=== PATIENT | female | born 1965 | race Caucasian/White ===

== ENCOUNTER 2018-07-08 20:31 | Emergency (ER) | payer SELFPAY | END 2018-07-08 21:35 | disposition left against medical advice (07) | LOC: ER 20:31 | DX: Z53.21 Procedure and treatment not carried out due to patient leaving prior to being seen by health care provider (principal) ==

== ENCOUNTER → 2019-04-16 | Outpatient (CLI) | payer OTHER, MEDICAID ==
--- NOTE | 2019-04-16 08:54 | WOMENS IMAGING REPORT ---
EXAM DESCRIPTION: BILAT DIAGNOSTIC MAMMO W/CAD; U/S BREAST UNILAT LIMITED COMPLETED DATE/TIME: 04/16/2019 8:12 am; 04/16/2019 8:41 am REASON FOR STUDY: N64.4 MASTODYNIA; LT BREAST US PAIN N64.4 N64.4 MASTODYNIA COMPARISON: 2014, 2011 EXAM PARAMETERS: Standard craniocaudal and mediolateral oblique views of each breast recorded using digital acquisition. Additional nipple in profile CC mammograms bilaterally. Left breast 90 mediolateral view and exagge rated craniocaudad view. Ultrasound was also performed left breast in the area of pain, upper outer quadrant Read with the assistance of CAD: .[facility] - [employer] Version 9.2 LIMITATIONS: None. FINDINGS: RIGHT BREAST MASSES: No suspicious masses. CALCIFICATIONS: No new or suspicious calcifications. ARCHITECTURAL DISTORTION: None. DEVELOPING DENSITY: None. ASYMMETRY: None noted. OTHER: No other significant findings. LEFT BREAST MASSES: No suspicious masses. CALCIFICATIONS: No new or suspicious calcifications. ARCHITECTURAL DISTORTION: None. DEVELOPING DENSITY: None. ASYMMETRY: None noted. OTHER: No other significant finding. Left breast ultrasound: Ultrasound of the left breast demonstrates no discrete cystic or solid lesions. No worrisome acousti c absorption. No focal findings to explain history of breast pain IMPRESSION: No mammographic evidence for malignancy right breast. No mammographic or sonographic evidence for malignancy left breast ASSESSMENT:BIRADS 1: NEGATIVE BREAST DENSITY: a. The breasts are almost entirely fatty. BIRAD: 1 Negative. RECOMMENDATION: RECOMMENDED FOLLOW UP: Please continue yearly bilateral screening mammography/ tomos ynthesis in March 2020 SPECIFIC INTERVENTION/IMAGING/CONSULTATION RECOMMENDED:No additional intervention/ imaging/consultati on needed at this time. COMMUNICATION:Patient notified by letter COMMENT: The patient has been notified of the results by letter per MQSA requirements. Additional no tification policies are in place for contacting patient with suspicious or incomplete findings. Quality ID #225: The [employer] recommends an annual screening mammogram for women aged 40 years or over. This facility utilizes a reminder system to ensure that all patients receive reminder letters, and/or direct phone calls for appointments. This includes reminders for routine scr eening mammograms, diagnostic mammograms, or other Breast Imaging Interventions when appropriate. Th is patient will be placed in the appropriate reminder system. TECHNICAL DOCUMENTATION: FINDING NUMBER: (1) ASSESSMENT: (1) JOB ID: [id number] [employer]- All Rights Reserved Reading location - IP/workstation name: [email or web address]
--- NOTE | 2019-04-16 08:54 | WOMENS IMAGING REPORT ---
EXAM DESCRIPTION: BILAT DIAGNOSTIC MAMMO W/CAD; U/S BREAST UNILAT LIMITED COMPLETED DATE/TIME: 04/16/2019 8:12 am; 04/16/2019 8:41 am REASON FOR STUDY: N64.4 MASTODYNIA; LT BREAST US PAIN N64.4 N64.4 MASTODYNIA COMPARISON: 2014, 2011 EXAM PARAMETERS: Standard craniocaudal and mediolateral oblique views of each breast recorded using digital acquisition. Additional nipple in profile CC mammograms bilaterally. Left breast 90 mediolateral view and exagge rated craniocaudad view. Ultrasound was also performed left breast in the area of pain, upper outer quadrant Read with the assistance of CAD: .[facility] - [employer] Version 9.2 LIMITATIONS: None. FINDINGS: RIGHT BREAST MASSES: No suspicious masses. CALCIFICATIONS: No new or suspicious calcifications. ARCHITECTURAL DISTORTION: None. DEVELOPING DENSITY: None. ASYMMETRY: None noted. OTHER: No other significant findings. LEFT BREAST MASSES: No suspicious masses. CALCIFICATIONS: No new or suspicious calcifications. ARCHITECTURAL DISTORTION: None. DEVELOPING DENSITY: None. ASYMMETRY: None noted. OTHER: No other significant finding. Left breast ultrasound: Ultrasound of the left breast demonstrates no discrete cystic or solid lesions. No worrisome acousti c absorption. No focal findings to explain history of breast pain IMPRESSION: No mammographic evidence for malignancy right breast. No mammographic or sonographic evidence for malignancy left breast ASSESSMENT:BIRADS 1: NEGATIVE BREAST DENSITY: a. The breasts are almost entirely fatty. BIRAD: 1 Negative. RECOMMENDATION: RECOMMENDED FOLLOW UP: Please continue yearly bilateral screening mammography/ tomos ynthesis in March 2020 SPECIFIC INTERVENTION/IMAGING/CONSULTATION RECOMMENDED:No additional intervention/ imaging/consultati on needed at this time. COMMUNICATION:Patient notified by letter COMMENT: The patient has been notified of the results by letter per MQSA requirements. Additional no tification policies are in place for contacting patient with suspicious or incomplete findings. Quality ID #225: The [employer] recommends an annual screening mammogram for women aged 40 years or over. This facility utilizes a reminder system to ensure that all patients receive reminder letters, and/or direct phone calls for appointments. This includes reminders for routine scr eening mammograms, diagnostic mammograms, or other Breast Imaging Interventions when appropriate. Th is patient will be placed in the appropriate reminder system. TECHNICAL DOCUMENTATION: FINDING NUMBER: (1) ASSESSMENT: (1) JOB ID: [id number] [employer]- All Rights Reserved Reading location - IP/workstation name: [email or web address]
== END ==
LOC: WI 07:53
PROVIDERS: ATTEND Physician Assistant Medical
DX: N64.4 Mastodynia (principal)
CPT/HCPCS: 76642; 77066

== ENCOUNTER 2019-05-18 17:34 | Emergency (ER) | payer OTHER, MEDICAID ==
[2019-05-18] MEDS ORDERED: KETOROLAC TROMETHAMINE 60 MG/2 ML SDV IM ONE (17:49)
[2019-05-18] MEDS ORDERED: METOCLOPRAMIDE HCL 10 MG TABLET PO ONE (17:49)
[2019-05-18] MEDS ORDERED: DIPHENHYDRAMINE HCL 25 MG CAPSULE PO ONE (17:49)
--- NOTE | 2019-05-18 17:51 | ER Document Report ---
ED Medical Screen (RME) - General Chief Complaint: Headache Stated Complaint: HEADACHE Time Seen by Provider: 05/18/19 17:43 Primary Care Provider: ARNOL ABEBE PA-C [Primary Care Provider] - Follow up as needed Mode of Arrival: Ambulatory Information source: Patient Notes: Patient presents to the emergency department with complaints of severe headache to the back of her head. Reports she woke up this morning with a headache. She also reports blurred vision at that time. Denies fever vomiting diarrhea. Reports she just does not feel right. Patient is a diabetic reports her sugars have been in the 200s. Patient reports she has a history of headaches but usually the whole head hurts not just the back of her head. Patient also complains of left shoulder pain that is making her fingers numb. Reports history of rotator took cuff tear and is waiting to be scheduled for surgery. She took 1 of her Percocets that she was supposed to take for shoulder and it did not help her head at all. I have greeted and performed a rapid initial assessment of this patient. A comprehensive ED assessment and evaluation of the patient, analysis of test results and completion of the medical decision making process will be conducted by additional ED providers. Dictation of this chart was performed using voice recognition software; therefore, there may be some unintended grammatical errors. TRAVEL OUTSIDE OF THE [place] IN LAST 30 DAYS: No - Related Data Allergies/Adverse Reactions: levofloxacin [From Levaquin] Adverse Reaction (Intermediate, Verified 05/18/19 17:39) nausea and vomiting simvastatin [From Zocor] Adverse Reaction (Intermediate, Verified 05/18/19 17:39) rash Past Medical History - Past Medical History Cardiac Medical History: Reports: Hx Hypercholesterolemia, Hx Hypertension, Hx Heart Murmur Denies: Hx Coronary Artery Disease, Hx Heart Attack Pulmonary Medical History: Reports: Hx Asthma, Hx Bronchitis, Hx Pneumonia Denies: Hx COPD Neurological Medical History: Reports: Hx Migraine. Denies: Hx Cerebrovascular Accident, Hx Seizures Endocrine Medical History: Reports: Hx Diabetes Mellitus Type 2 Renal/ Medical History: Reports: Hx Kidney Stones. Denies: Hx Peritoneal Dialysis GI Medical History: Reports: Hx Gastroesophageal Reflux Disease, Hx Ulcer - gastric, Hx Colonoscopy, Hx Endoscopy Musculoskeltal Medical History: Reports Hx Arthritis, Reports Hx Musculoskeletal Trauma Psychiatric Medical History: Reports: Hx Depression Traumatic Medical History: Reports: Hx Fractures - wrist, both ankles Past Surgical History: Reports: Hx Cholecystectomy - lap marilyn, Hx Hysterectomy, Hx Orthopedic Surgery - L knee x2. Denies: Hx Pacemaker - Immunizations Immunizations up to date: Yes Hx Diphtheria, Pertussis, Tetanus Vaccination: Yes - 2012 Physical Exam - Vital signs Vitals: Temp Pulse Resp BP Pulse Ox 99.0 F 83 18 155/76 H 94 05/18/19 17:41 05/18/19 17:41 05/18/19 17:41 05/18/19 17:41 05/18/19 17:41 Course - Vital Signs Vital signs: Temp Pulse Resp BP Pulse Ox 99.0 F 83 18 155/76 H 94 05/18/19 17:41 05/18/19 17:41 05/18/19 17:41 05/18/19 17:41 05/18/19 17:41 Doctor's Discharge - Discharge Referrals: ARNOL ABEBE PA-C [Primary Care Provider] - Follow up as needed
[2019-05-18 18:18] LABS: ABSOLUTE EOSINOPHILS # (AUTO) 0.2 10^3/uL (0.0-0.6); ABSOLUTE LYMPHOCYTES (AUTO) 2.2 10^3/uL (0.5-4.7); ABSOLUTE MONOCYTES (AUTO) 0.3 10^3/uL (0.1-1.4); ABSOLUTE NEUT (AUTO) 3.4 10^3/uL (1.7-8.2); BASOPHILS % (AUTO) 0.8 % (0-2); HEMOGLOBIN 13.9 g/dL (12.0-15.5); LYMPHOCYTES % (AUTO) 35.3 % (13-45); MEAN CORPUSCULAR HEMOGLOBIN 27.4 pg (27.0-33.4); MEAN CORPUSCULAR HGB CONC 33.1 g/dL (32.0-36.0); MEAN CORPUSCULAR VOLUME 83 fl (80-97); MONOCYTES % (AUTO) 4.6 % (3-13); PLATELET COUNT 145 10^3/uL (150-450); RED BLOOD COUNT 5.08 10^6/uL (3.72-5.28); RED CELL DISTRIBUTION WIDTH 14.1 % (11.5-14.0); SEGMENTED NEUTROPHILS % (AUTO) 56.3 % (42-78); TOTAL CELLS COUNTED % (AUTO) 100 %; WHITE BLOOD COUNT 6.1 10^3/uL (4.0-10.5)
[2019-05-18 18:26] LABS: APPEARANCE,URINE SLIGHTLY-CLOUDY; BILIRUBIN,URINE NEGATIVE (NEGATIVE); COLOR,URINE YELLOW; GLUCOSE, URINE >=500 mg/dL (NEGATIVE); KETONES,URINE NEGATIVE (NEGATIVE); LEUKOCYTE ESTERASE,URINE NEGATIVE (NEGATIVE); NITRITE,URINE NEGATIVE (NEGATIVE); PROTEIN,URINE NEGATIVE (NEGATIVE); URINE SPECIFIC GRAVITY 1.028; UROBILINOGEN,URINE NEGATIVE mg/dL (<2.0)
[2019-05-18 18:37] LABS: ALANINE AMINOTRANSFERASE 65 U/L (9-52); ALBUMIN 4.5 g/dL (3.5-5.0); ALKALINE PHOSPHATASE 131 U/L (38-126); ANION GAP 10 (5-19); ASPARTATE AMINO TRANSFERASE 72 U/L (14-36); BILIRUBIN,DIRECT 0.3 mg/dL (0.0-0.4); BILIRUBIN,TOTAL 0.8 mg/dL (0.2-1.3); BLOOD UREA NITROGEN 15 mg/dL (7-20); CALCIUM 9.6 mg/dL (8.4-10.2); CARBON DIOXIDE 27 mmol/L (22-30); CHLORIDE 96 mmol/L (98-107); POTASSIUM 4.7 mmol/L (3.6-5.0); SODIUM 133.1 mmol/L (137-145); TOTAL PROTEIN 8.1 g/dL (6.3-8.2)
[2019-05-18] MEDS ORDERED: NORMAL SALINE 1000 ML 1,000 ML IV PRN (18:38)
[2019-05-18 18:45] LABS: GLUCOSE 439 mg/dL (75-110)
[2019-05-18] MEDS ORDERED: DIAZEPAM 5 MG TABLET PO ONE (19:30)
[2019-05-18] MEDS ORDERED: NORMAL SALINE 1000 ML 1,000 ML IV ONE (19:31)
--- NOTE | 2019-05-18 19:37 | ER Document Report ---
ED Headache - General Chief Complaint: Headache Stated Complaint: HEADACHE Time Seen by Provider: 05/18/19 17:43 Primary Care Provider: ARNOL ABEBE PA-C [Primary Care Provider] - Follow up as needed Mode of Arrival: Ambulatory TRAVEL OUTSIDE OF THE [place] IN LAST 30 DAYS: No - HPI Notes: Patient is a 54-year-old female that presents to the emergency department for chief complaint of headache. Patient states that she has had a headache since early this morning. It has gradually become worse. She describes it as a achy throbbing sensation on the bilateral lower aspect of her head and radiating into her neck and left shoulder. Patient states she has a torn left rotator cuff and is due for surgery soon. She has had pain in that left shoulder which is unchanged today. She did take a Percocet at home which she has prescribed for the left shoulder pain which did not improve her headache. Patient does report history of migraines but states that those are usually more diffuse. She states that the pain is severe enough it is causing her to have blurry vision. She denies double vision, numbness and weakness. Patient also has not been taking her Lantus at home for the last 5 days because it makes her feel too tired. She states she is working with her PCP to have her dose lowered but this has not happened yet because of issues with the pharmacy. Past Medical History: Diabetes, hypertension, hyperlipidemia, obesity, migraines Past Surgical History: Reviewed in chart Social History: Reviewed in chart Family History: Reviewed and noncontributory for presenting illness Allergies: Reviewed, see documented allergy list. REVIEW OF SYSTEMS: CONSTITUTIONAL : No fever No chills No diaphoresis No recent illness EENT: vision changes No congestion No sore throat CARDIOVASCULAR: No chest pain No palpitations RESPIRATORY: No shortness of breath No cough No difficulty breathing GASTROINTESTINAL: No abdominal pain No nausea No vomiting No diarrhea GENITOURINARY: No dysuria No hematuria No difficulty urinating MUSCULOSKELETAL: No back pain No leg pain arm pain SKIN: No rashes No lesions LYMPHATIC: No swollen, enlarged glands. NEUROLOGICAL: No lightheadedness headache No weakness No paresthesias PSYCHIATRIC: No anxiety No depression PHYSICAL EXAMINATION: Vital signs reviewed, nursing noted reviewed. GENERAL: Well-appearing, obese and in no acute distress. HEAD: Tenderness at the insertion site on the occiput of the paracervical muscles. Atraumatic, normocephalic. EYES: No pain with ocular movement, PERRLA, eyes appear normal, extraocular movements intact, sclera anicteric, conjunctiva are normal. ENT: nares patent, oropharynx clear without exudates. Dry mucous membranes. NECK: Bilateral paraspinal muscle spasm and tenderness, no midline cervical spine tenderness, normal range of motion, supple without lymphadenopathy, no meningismus LUNGS: Breath sounds clear to auscultation bilaterally and equal. No wheezes rales or rhonchi. HEART: Regular rate and rhythm without murmurs ABDOMEN: Soft, nontender, normoactive bowel sounds. No rebound, guarding, or rigidity. No masses appreciated. EXTREMITIES: Posterior tenderness in the left shoulder with pain full range of motion of the left shoulder, no pitting or edema. NEUROLOGICAL: No focal neurological deficits. Moves all extremities spontaneously Motor and sensory grossly intact on exam. PSYCH: Normal mood, normal affect. SKIN: Warm, Dry, normal turgor, no rashes or lesions noted on exposed skin - Related Data Allergies/Adverse Reactions: levofloxacin [From Levaquin] Adverse Reaction (Intermediate, Verified 05/18/19 17:39) nausea and vomiting simvastatin [From Zocor] Adverse Reaction (Intermediate, Verified 05/18/19 17:39) rash Past Medical History - General Information source: Patient - Social History Smoking Status: Unknown if Ever Smoked Family History: Arthritis, Malignancy, CAD, CVA, DM, Hyperlipidemia, Hypertension, Reviewed & Not Pertinent Patient has suicidal ideation: No Patient has homicidal ideation: No - Past Medical History Cardiac Medical History: Reports: Hx Hypercholesterolemia, Hx Hypertension, Hx Heart Murmur Denies: Hx Coronary Artery Disease, Hx Heart Attack Pulmonary Medical History: Reports: Hx Asthma, Hx Bronchitis, Hx Pneumonia Denies: Hx COPD Neurological Medical History: Reports: Hx Migraine. Denies: Hx Cerebrovascular Accident, Hx Seizures Endocrine Medical History: Reports: Hx Diabetes Mellitus Type 2 Renal/ Medical History: Reports: Hx Kidney Stones. Denies: Hx Peritoneal Dialysis GI Medical History: Reports: Hx Gastroesophageal Reflux Disease, Hx Ulcer - gastric, Hx Colonoscopy, Hx Endoscopy Musculoskeletal Medical History: Reports Hx Arthritis, Reports Hx Musculoskeletal Trauma Psychiatric Medical History: Reports: Hx Depression Traumatic Medical History: Reports: Hx Fractures - wrist, both ankles Past Surgical History: Reports: Hx Cholecystectomy - lap marilyn, Hx Hysterectomy, Hx Orthopedic Surgery - L knee x2. Denies: Hx Pacemaker - Immunizations Immunizations up to date: Yes Hx Diphtheria, Pertussis, Tetanus Vaccination: Yes - 2012 Hx Pneumococcal Vaccination: 08/19/15 Physical Exam - Vital signs Vitals: Temp Pulse Resp BP Pulse Ox 99.0 F 83 18 155/76 H 94 05/18/19 17:41 05/18/19 17:41 05/18/19 17:41 05/18/19 17:41 05/18/19 17:41 - HEENT Visual acuity- Right eye: 20/100 Visual acuity- Left eye: 20/100 Visual acuity- Both eyes: 20/100 Corrective lenses worn: No - Only wears reading glasses Course - Re-evaluation Re-evalutation: 05/18/19 19:34 Vitals reviewed. Nursing notes reviewed. Patient is well-appearing and afebrile, clinically I do not suspect meningitis. She is splinting her left shoulder because of her torn rotator cuff and I suspect this is causing muscle spasm into her cervical spine. She is tender at the insertion site of her paracervical muscles and reports that is the location of her pain. She has had some improvement of her symptoms after Toradol. Patient will be given Valium for further pain control. She was also hyperglycemic. Patient ordered 2 L IV fluids for her hyperglycemia. She has no anion gap or ketones in her urine to suggest acute DKA. Patient's hyperglycemia is due to the fact that she has not taken her Lantus in the last 5 days. 05/18/19 20:45 Patient reevaluated and states she is feeling much better. She is now sitting in a bedside chair. Her pain has almost completely resolved. Patient's heada allen consistent with tension headache. She was counseled on stretching and heat. She does have Percocet at home which she will take for pain. She will continue to follow with her primary care doctor regarding her insulin and uncontrolled diabetes. Her blood sugar has improved with IV fluids to 349. Patient counseled on return precautions and stable at time of discharge. Laboratory 05/18/19 05/18/19 05/18/19 18:05 18:05 18:05 WBC 6.1 RBC 5.08 Hgb 13.9 Hct 42.0 MCV 83 MCH 27.4 MCHC 33.1 RDW 14.1 H Plt Count 145 L Seg Neutrophils % 56.3 Lymphocytes % 35.3 Monocytes % 4.6 Eosinophils % 3.0 Basophils % 0.8 Absolute Neutrophils 3.4 Absolute Lymphocytes 2.2 Absolute Monocytes 0.3 Absolute Eosinophils 0.2 Absolute Basophils 0.0 Sodium 133.1 L Potassium 4.7 Chloride 96 L Carbon Dioxide 27 Anion Gap 10 BUN 15 Creatinine 0.87 Est GFR ( Amer) > 60 Est GFR (Non-Af Amer) > 60 Glucose 439 H* POC Glucose Calcium 9.6 Total Bilirubin 0.8 Direct Bilirubin 0.3 Neonat Total Bilirubin Not Reportable Neonat Direct Bilirubin Not Reportable Neonat Indirect Bili Not Reportable AST 72 H ALT 65 H Alkaline Phosphatase 131 H Total Protein 8.1 Albumin 4.5 Urine Color YELLOW Urine Appearance SLIGHTLY-CLOUDY Urine pH 6.0 Ur Specific [place] 1.028 Urine Protein NEGATIVE Urine Glucose (UA) >=500 H Urine Ketones NEGATIVE Urine Blood SMALL H Urine Nitrite NEGATIVE Urine Bilirubin NEGATIVE Urine Urobilinogen NEGATIVE Ur Leukocyte Esterase NEGATIVE Urine WBC (Auto) 4 Urine RBC (Auto) 1 Squamous Epi Cells Auto 4 Urine Mucus (Auto) RARE Urine Ascorbic Acid NEGATIVE 05/18/19 18:17 WBC RBC Hgb Hct MCV MCH MCHC RDW Plt Count Seg Neutrophils % Lymphocytes % Monocytes % Eosinophils % Basophils % Absolute Neutrophils Absolute Lymphocytes Absolute Monocytes Absolute Eosinophils Absolute Basophils Sodium Potassium Chloride Carbon Dioxide Anion Gap BUN Creatinine Est GFR ( Amer) Est GFR (Non-Af Amer) Glucose POC Glucose 393 H Calcium Total Bilirubin Direct Bilirubin Neonat Total Bilirubin Neonat Direct Bilirubin Neonat Indirect Bili AST ALT Alkaline Phosphatase Total Protein Albumin Urine Color Urine Appearance Urine pH Ur Specific [place] Urine Protein Urine Glucose (UA) Urine Ketones Urine Blood Urine Nitrite Urine Bilirubin Urine Urobilinogen Ur Leukocyte Esterase Urine WBC (Auto) Urine RBC (Auto) Squamous Epi Cells Auto Urine Mucus (Auto) Urine Ascorbic Acid - Vital Signs Vital signs: Temp Pulse Resp BP Pulse Ox 99.0 F 83 18 155/76 H 94 05/18/19 17:41 05/18/19 17:41 05/18/19 17:41 05/18/19 17:41 05/18/19 17:41 - Laboratory Result Diagrams: 05/18/19 18:05 05/18/19 18:05 Laboratory results interpreted by me: 05/18/19 05/18/19 05/18/19 18:05 18:05 18:05 RDW 14.1 H Plt Count 145 L Sodium 133.1 L Chloride 96 L Glucose 439 H* POC Glucose AST 72 H ALT 65 H Alkaline Phosphatase 131 H Urine Glucose (UA) >=500 H Urine Blood SMALL H 05/18/19 18:17 RDW Plt Count Sodium Chloride Glucose POC Glucose 393 H AST ALT Alkaline Phosphatase Urine Glucose (UA) Urine Blood Discharge - Discharge Clinical Impression: Headache Qualifiers: Headache type: tension-type Headache chronicity pattern: acute headache Intractability: not intractable Qualified Code(s): G44.209 - Tension-type headache, unspecified, not intractable Uncontrolled diabetes mellitus Qualifiers: Diabetes mellitus type: type 1 Glycemic state: with hyperglycemia Qualified Code(s): E10.65 - Type 1 diabetes mellitus with hyperglycemia Condition: Stable Disposition: HOME, SELF-CARE Additional Instructions: Please return to the emergency department if you have any worsening, or concern of your symptoms. Please return to the emergency department if you develop chest pain, difficulty breathing, severe abdominal pain, or ongoing vomiting. Please follow-up with your primary care physician in 2-3 days and any other recommended physicians. If prescribed, take all medications as directed. If you have any questions or concerns do not hesitate to return the emergency department for evaluation. Referrals: ARNOL ABEBE PA-C [Primary Care Provider] - Follow up tomorrow
[2019-05-18 21:17] VITALS: BP 131/73
== END 2019-05-18 21:17 | disposition home or self-care (01) ==
LOC: ER 17:34
DX: G44.209 Tension-type headache, unspecified, not intractable (principal); E10.65 Type 1 diabetes mellitus with hyperglycemia; T38.3X6A Underdosing of insulin and oral hypoglycemic [antidiabetic] drugs, initial encounter; Z91.128 Patient's intentional underdosing of medication regimen for other reason; Z91.14 Patient's other noncompliance with medication regimen; H53.8 Other visual disturbances; S46.022A Laceration of muscle(s) and tendon(s) of the rotator cuff of left shoulder, initial encounter; X58.XXXA Exposure to other specified factors, initial encounter; M25.512 Pain in left shoulder; I10 Essential (primary) hypertension; J45.909 Unspecified asthma, uncomplicated
CPT/HCPCS: 36415; 82962; 85025; 80053; 81001; J1885; J7030; 96361; 96374; 99284

== ENCOUNTER 2019-05-27 10:31 | Day surgery (SDC) | payer OTHER, MEDICAID ==
[~2019-05-27 10:31] MED LIST: CEFAZOLIN 2 GM/D5W RTU 2 GM/50 ML RTUPB IV ONE; CEFAZOLIN 2 GM/D5W RTU 2 GM/50 ML RTUPB IV PRN; DEXAMETHASONE SOD PHOSPHATE INJ 4 MG/1 ML VIAL ONE; EPHEDRINE SULFATE INJ 50 MG/1 ML AMPULE ONE; FENTANYL CITRATE INJ/PF 250 MCG/5 ML AMPULE ONE; MIDAZOLAM 2 MG/2 ML INJ ONE; ONDANSETRON HCL INJ/PF 4 MG/2 ML SDV ONE; PROPOFOL INJ 200 MG/20 ML VIAL IV ONE
[2019-05-27 11:58] LABS: ANION GAP 11 (5-19); BLOOD UREA NITROGEN 20 mg/dL (7-20); CALCIUM 9.7 mg/dL (8.4-10.2); CARBON DIOXIDE 26 mmol/L (22-30); CHLORIDE 96 mmol/L (98-107); GLUCOSE 219 mg/dL (75-110); POTASSIUM 3.9 mmol/L (3.6-5.0); SODIUM 133.4 mmol/L (137-145)
[2019-05-27] MEDS ORDERED: METOCLOPRAMIDE HCL INJ/PF 10 MG/2 ML SDV IV ONE (12:00)
[2019-05-27] MEDS ORDERED: FAMOTIDINE INJ/PF 20 MG/2 ML SDV IV ONE ×2 (12:00→12:51)
[2019-05-27] MEDS ORDERED: METOCLOPRAMIDE HCL INJ/PF 10 MG/2 ML SDV ONE (12:50)
[2019-05-27] MEDS ORDERED: EPINEPHRINE INJ/PF 1 MG/1 ML AMPULE ONE (13:15)
[2019-05-27] MEDS ORDERED: BUPIVACAINE HCL 0.5 % INJ/PF 30 ML SDV ONE (13:15)
[2019-05-27] MEDS ORDERED: FENTANYL CITRATE INJ/PF 100 MCG/2 ML AMPUL IV PRN ×3 (14:26)
[2019-05-27] MEDS ORDERED: PROMETHAZINE HCL INJ 25 MG/1 ML VIAL IV PRN ×2 (14:26)
[2019-05-27] MEDS ORDERED: DIPHENHYDRAMINE HCL 50 MG/ML VIAL IV PRN (14:26)
[2019-05-27] MEDS ORDERED: MORPHINE SULFATE 10 MG/ML INJ IV PRN ×2 (14:26→15:22)
[2019-05-27] MEDS ORDERED: MEPERIDINE HCL/PF INJ 25 MG/1 ML DISP.SYRIN IV PRN (14:26)
[2019-05-27] MEDS ORDERED: ONDANSETRON HCL INJ/PF 4 MG/2 ML SDV IV PRN ×2 (14:26→15:22)
[2019-05-27] MEDS ORDERED: OXYCODONE-ACETAMINOPHEN 5-325 MG TABLET PO PRN (15:22)
--- NOTE | 2019-05-27 15:25 | Discharge Summary ---
Discharge Summary (SDC) - Discharge Final Diagnosis: Left shoulder impingement syndrome, subacromial bursitis Date of Surgery: 05/27/19 Discharge Date: 05/27/19 Condition: Good Treatment or Instructions: Schedule Follow Up w/ Dr. Mohan Coppola @ [facility] to be seen in 10-14 days or as scheduled [place]: [place]: [place]: May remove dressing on postop day #3, keep incision covered and dry. Cryocuff to shoulder May begin pendulum exercises along w/ hand, wrist and elbow range of motion 4x per day or as tolerated. May remove sling for hygiene purposes otherwise continue it at all times. Stool softener of choice when on pain medication. Prescriptions: Oxycodone HCl/Acetaminophen [Percocet 7.5-325 mg Tablet] 1 tab PO Q6 PRN #25 tab PRN Reason: Referrals: ARNOL ABEBE PA-C [Primary Care Provider] - Discharge Diet: As Tolerated Respiratory Treatments at Home: Deep Breathing/Coughing, Incentive Spirometer Discharge Activity: No Lifting Over 10 Pounds, No Lifting/Push/Pulling Report the Following to Your Physician Immediately: Fever over 101 Degrees, Unusual Bleeding, Redness, Swelling, Warmth, Increased Soreness
--- NOTE | 2019-05-27 15:31 | Operative Report ---
Operative Report DATE OF SURGERY: 05/27/19 PREOPERATIVE DIAGNOSIS: left shoulder subacromial bursitis, impingement syndrom e, biceps tendon tear, AC joint arthropathy POSTOPERATIVE DIAGNOSIS: Same OPERATION: Left shoulder arthroscopy with subacromial decompression, acromio plasty, distal clavicle excision, biceps tenotomy SURGEON: BARBARA DONAHUE ANESTHESIA: GA COMPLICATIONS: None ESTIMATED BLOOD LOSS: Minimal PROCEDURE: Indication for above procedure: 54-year-old female who sustained a injury to her left shoulder ever since that time she continued to have shoulder discomfort. Attempted conservative measures including injection without resolution of her symptoms MRI was then done demonstrating AC joint arthropathy with possible proximal biceps tendon tear which coincided with patient's physical examination findings. We discussed risks and benefits of the surgical procedure patient verbalized understanding consented for surgical procedure. Procedure In Detail: Patient was seen and evaluated in the preoperative holding area. The left upper extremity was initialized and marked. Patient received 2g of Ancef IV for bacterial prophylaxis. Patient was taken back to the operative room where transferred to the operative table and placed under general anesthesia. Once they were adequately anesthetized patient was placed in the beachchair position bilateral lower extremities and nonoperative extremity carefully padded. Cervical spine patient in neutral position all bony prominences padded. A surgical team debriefing was performed ensuring all instrumentation was available, the surgical procedure was discussed with possible concerns reviewed. ChloraPrep and draped in a sterile fashion. Posterior lateral portal was established arthroscope was introduced into the glenohumeral joint. Via triangulation anterior portal was established. Diagnostic arthroscopy and straight mild fraying of the supraspinatus undersurface but no full-thickness tear. This area was carefully debrided. Inspection of the biceps and anterior superior labrum demonstrated fraying of the biceps as it entered into the bicipital groove and fraying along the labrum. There was mild fraying of the subscapularis but no evidence of full-thickness tear. Biceps tenotomy was performed. Labrum and subscapularis were debrided. There was mild fraying of the glenoid chondral surface and thus chondroplasty performed. Attention then turned to subacromial space. Arthroscope was introduced into the subacromial space and lateral portal established. Coracoacromial ligament was released but not excised. Anterior acromial spur was noted along with fraying along the superior surface of the supraspinatus. Acromioplasty was performed removing the acromial spur and excising the acromial spur to avoid future impingement. Partial debridement of the bursal sided tear was performed along with subacromial bursectomy. Inspection of the AC joint demonstrate degeneration anterior portal was established and 9 mm of distal clavicle excised. A Neviser's portal was established as well to confirm and complete distal clavicle excision. There is no evidence of impingement with shoulder abduction. Final inspection demonstrated no further pathology appreciated. Portal incisions were closed with interrupted 3-0 nylon suture. 30 cc of 0.5% bupivacaine without epinephrine was injected for postoperative pain control. Wound was dressed with Xeroform 4 x 4's and a soft dressing. Cryo/Cuff and sling were placed. Sponge counts, instrument counts, needle counts were correct. Patient was then awoken from anesthesia. Transferred from the operating room table to the operating room stretcher. There was no intraoperative complications patient tolerated procedure well stable to PACU. Postoperative plan: Patient thought in the office in 2 weeks for recheck. We will discuss intraoperative findings and set patient up for postoperative physical therapy aggressive protocol.
[2019-05-27] MEDS ORDERED: FENTANYL CITRATE INJ/PF 100 MCG/2 ML AMPUL ONE (15:36)
[2019-05-27] MEDS ORDERED: LIDOCAINE 2%/EPINEPHRINE INJ 20 ML VIAL ONE (15:38)
[2019-05-27] MEDS ORDERED: ROPIVACAINE HCL 0.5% INJ/PF (5 MG/1 ML) 30 ML SDV ONE (15:39)
[2019-05-27] MEDS ORDERED: LIDOCAINE 2% INJ (20 MG/ML) 20 ML MDV ONE (15:39)
[2019-05-27 19:57] VITALS: BP 120/71
== END 2019-05-27 18:40 | disposition home or self-care (01) ==
LOC: OROUT 10:31
PROVIDERS: ATTEND Orthopaedic Surgery
DX: M75.52 Bursitis of left shoulder (principal); M75.42 Impingement syndrome of left shoulder; M13.812 Other specified arthritis, left shoulder; M75.112 Incomplete rotator cuff tear or rupture of left shoulder, not specified as traumatic; S46.212A Strain of muscle, fascia and tendon of other parts of biceps, left arm, initial encounter; X58.XXXA Exposure to other specified factors, initial encounter; J45.909 Unspecified asthma, uncomplicated; I10 Essential (primary) hypertension; E11.9 Type 2 diabetes mellitus without complications; E78.5 Hyperlipidemia, unspecified; E66.9 Obesity, unspecified; Z68.43 Body mass index [BMI] 50.0-59.9, adult; Z79.899 Other long term (current) drug therapy; Z79.84 Long term (current) use of oral hypoglycemic drugs; Z87.11 Personal history of peptic ulcer disease
CPT/HCPCS: 36415; 80048; 29822; 29824; J2795; J2250; J3490 ×3; J1100; J0171; J3010 ×2; J2765; J2405; J2704; S0028; J0690; 1630

== ENCOUNTER → 2019-07-03 | Outpatient (CLI) | payer OTHER, MEDICAID ==
[2019-07-03 17:40] LABS: ABSOLUTE BASOPHILS # (AUTO) 0.1 10^3/uL (0.0-0.2); ABSOLUTE EOSINOPHILS # (AUTO) 0.1 10^3/uL (0.0-0.6); ABSOLUTE MONOCYTES (AUTO) 0.3 10^3/uL (0.1-1.4); ABSOLUTE NEUT (AUTO) 3.2 10^3/uL (1.7-8.2); BASOPHILS % (AUTO) 0.9 % (0-2); EOSINOPHILS % (AUTO) 2.2 % (0-6); HEMATOCRIT 41.5 % (36.0-47.0); HEMOGLOBIN 13.5 g/dL (12.0-15.5); LYMPHOCYTES % (AUTO) 44.3 % (13-45); MEAN CORPUSCULAR HEMOGLOBIN 27.3 pg (27.0-33.4); MEAN CORPUSCULAR HGB CONC 32.6 g/dL (32.0-36.0); MEAN CORPUSCULAR VOLUME 84 fl (80-97); PLATELET COUNT 138 10^3/uL (150-450); RED BLOOD COUNT 4.96 10^6/uL (3.72-5.28); RED CELL DISTRIBUTION WIDTH 14.3 % (11.5-14.0); SEGMENTED NEUTROPHILS % (AUTO) 47.6 % (42-78); TOTAL CELLS COUNTED % (AUTO) 100 %; WHITE BLOOD COUNT 6.7 10^3/uL (4.0-10.5)
[2019-07-03 18:02] LABS: ALBUMIN 4.4 g/dL (3.5-5.0); ALKALINE PHOSPHATASE 119 U/L (38-126); ANION GAP 11 (5-19); ASPARTATE AMINO TRANSFERASE 42 U/L (14-36); BILIRUBIN,DIRECT 0.3 mg/dL (0.0-0.4); BILIRUBIN,TOTAL 0.7 mg/dL (0.2-1.3); BLOOD UREA NITROGEN 14 mg/dL (7-20); CALCIUM 9.7 mg/dL (8.4-10.2); CARBON DIOXIDE 31 mmol/L (22-30); CHLORIDE 91 mmol/L (98-107); POTASSIUM 4.5 mmol/L (3.6-5.0); TOTAL PROTEIN 7.5 g/dL (6.3-8.2)
[2019-07-03 18:35] LABS: GLUCOSE 419 mg/dL (75-110)
== END ==
LOC: OD 16:40
PROVIDERS: ATTEND Physician Assistant Medical
DX: E11.65 Type 2 diabetes mellitus with hyperglycemia (principal); R11.2 Nausea with vomiting, unspecified
CPT/HCPCS: 36415; 83930; 85025; 87070

== ENCOUNTER 2019-07-07 12:05 | Emergency (ER) | payer OTHER, MEDICAID ==
--- NOTE | 2019-07-07 12:49 | ER Document Report ---
ED Medical Screen (RME) - General Chief Complaint: Abnormal Lab Results Stated Complaint: ABNORMAL LABS Time Seen by Provider: 07/07/19 12:39 Primary Care Provider: ARNOL ABEBE PA-C [Primary Care Provider] - Follow up as needed Mode of Arrival: Ambulatory Information source: Patient Notes: Patient is a 54-year-old female presenting to the emergency department chief complaint of abnormal labs. Patient reports she saw her primary care provider on and had labs drawn. She states that they called her this morning and told her her labs were abnormal. Patient does report that she was out of her insulin for at least 2 weeks at the time of that lab draw. Patient reports she is now had her insulin filled and has been taking it appropriately. Patient does report intermittent nausea, vomiting and diarrhea. Exam: Patient appears well, is alert, smiling and laughing during my evaluation. Lungs are clear and equal bilaterally. I have greeted and performed a rapid initial assessment of this patient. A comprehensive ED assessment and evaluation of the patient, analysis of test results and completion of the medical decision making process will be conducted by additional ED providers. I have specifically instructed the patient or family members with the patient to immediately return to any nursing staff should anything change in the patient's condition or with their chief complaint. This medical record was dictated with voice recognizing software. There may be grammatical, syntax errors that are unintended. TRAVEL OUTSIDE OF THE [place] IN LAST 30 DAYS: No - Related Data Allergies/Adverse Reactions: levofloxacin [From Levaquin] Adverse Reaction (Intermediate, Verified 05/18/19 17:39) nausea and vomiting simvastatin [From Zocor] Adverse Reaction (Intermediate, Verified 05/18/19 17:39) rash Past Medical History - Social History Chew tobacco use (# tins/day): No Frequency of alcohol use: None Drug Abuse: None - Past Medical History Cardiac Medical History: Reports: Hx Hypercholesterolemia, Hx Hypertension, Hx Heart Murmur Denies: Hx Coronary Artery Disease, Hx Heart Attack Pulmonary Medical History: Reports: Hx Asthma - MILD Denies: Hx Bronchitis, Hx COPD, Hx Pneumonia Neurological Medical History: Reports: Hx Migraine. Denies: Hx Cerebrovascular Accident, Hx Seizures Endocrine Medical History: Reports: Hx Diabetes Mellitus Type 2 Renal/ Medical History: Reports: Hx Kidney Stones. Denies: Hx Peritoneal Dialysis GI Medical History: Reports: Hx Gastroesophageal Reflux Disease, Hx Ulcer - gastric, Hx Colonoscopy, Hx Endoscopy Musculoskeltal Medical History: Reports Hx Arthritis - JOSIE KNEES/BACK, Reports Hx Musculoskeletal Trauma Psychiatric Medical History: Reports: Hx Depression Traumatic Medical History: Reports: Hx Fractures - wrist, both ankles Past Surgical History: Reports: Hx Cholecystectomy - lap marilyn, Hx Hysterectomy, Hx Orthopedic Surgery - L knee x2. Denies: Hx Pacemaker - Immunizations Immunizations up to date: Yes Hx Diphtheria, Pertussis, Tetanus Vaccination: Yes Physical Exam - Vital signs Vitals: Temp Pulse Resp BP Pulse Ox 98.4 F 92 20 148/77 H 96 07/07/19 12:11 07/07/19 12:11 07/07/19 12:11 07/07/19 12:11 07/07/19 12:11 Course - Vital Signs Vital signs: Temp Pulse Resp BP Pulse Ox 98.4 F 92 20 148/77 H 96 07/07/19 12:11 07/07/19 12:11 07/07/19 12:11 07/07/19 12:11 07/07/19 12:11 Doctor's Discharge - Discharge Referrals: ARNOL ABEBE PA-C [Primary Care Provider] - Follow up as needed
[2019-07-07 13:18] LABS: ABSOLUTE BASOPHILS # (AUTO) 0.1 10^3/uL (0.0-0.2); ABSOLUTE EOSINOPHILS # (AUTO) 0.1 10^3/uL (0.0-0.6); ABSOLUTE LYMPHOCYTES (AUTO) 2.5 10^3/uL (0.5-4.7); ABSOLUTE MONOCYTES (AUTO) 0.4 10^3/uL (0.1-1.4); ABSOLUTE NEUT (AUTO) 4.3 10^3/uL (1.7-8.2); BASOPHILS % (AUTO) 0.7 % (0-2); EOSINOPHILS % (AUTO) 1.7 % (0-6); HEMATOCRIT 42.7 % (36.0-47.0); HEMOGLOBIN 14.1 g/dL (12.0-15.5); MEAN CORPUSCULAR HEMOGLOBIN 27.7 pg (27.0-33.4); MEAN CORPUSCULAR HGB CONC 32.9 g/dL (32.0-36.0); MEAN CORPUSCULAR VOLUME 84 fl (80-97); MONOCYTES % (AUTO) 5.2 % (3-13); PLATELET COUNT 136 10^3/uL (150-450); RED BLOOD COUNT 5.08 10^6/uL (3.72-5.28); RED CELL DISTRIBUTION WIDTH 14.4 % (11.5-14.0); SEGMENTED NEUTROPHILS % (AUTO) 58.4 % (42-78); TOTAL CELLS COUNTED % (AUTO) 100 %; WHITE BLOOD COUNT 7.4 10^3/uL (4.0-10.5)
[2019-07-07 13:27] LABS: APPEARANCE,URINE CLEAR; BILIRUBIN,URINE NEGATIVE (NEGATIVE); COLOR,URINE STRAW; GLUCOSE, URINE >=500 mg/dL (NEGATIVE); KETONES,URINE NEGATIVE (NEGATIVE); LEUKOCYTE ESTERASE,URINE NEGATIVE (NEGATIVE); NITRITE,URINE NEGATIVE (NEGATIVE); PROTEIN,URINE NEGATIVE (NEGATIVE); URINE SPECIFIC GRAVITY 1.025; UROBILINOGEN,URINE NEGATIVE mg/dL (<2.0)
[2019-07-07 13:39] LABS: ALBUMIN 4.3 g/dL (3.5-5.0); ALKALINE PHOSPHATASE 132 U/L (38-126); ANION GAP 13 (5-19); ASPARTATE AMINO TRANSFERASE 44 U/L (14-36); BILIRUBIN,DIRECT 0.4 mg/dL (0.0-0.4); BILIRUBIN,TOTAL 0.6 mg/dL (0.2-1.3); BLOOD UREA NITROGEN 18 mg/dL (7-20); CALCIUM 9.5 mg/dL (8.4-10.2); CARBON DIOXIDE 26 mmol/L (22-30); CHLORIDE 92 mmol/L (98-107); POTASSIUM 4.6 mmol/L (3.6-5.0); TOTAL PROTEIN 7.6 g/dL (6.3-8.2)
[2019-07-07 13:47] LABS: GLUCOSE 580 mg/dL (75-110)
[2019-07-07] MEDS ORDERED: NORMAL SALINE 1000 ML 1,000 ML IV ONE (14:05)
[2019-07-07] MEDS ORDERED: ONDANSETRON HCL INJ/PF 4 MG/2 ML SDV IV ONE (14:05)
[2019-07-07] MEDS ORDERED: MORPHINE SULFATE 10 MG/ML INJ IV ONE (14:05)
[2019-07-07] MEDS ORDERED: INSULIN REG, HUMAN 100 UNIT/ML 3 ML VIAL (PYX) IV ONE (14:06)
--- NOTE | 2019-07-07 15:19 | ER Document Report ---
ED General - General Chief Complaint: Abnormal Lab Results Stated Complaint: ABNORMAL LABS Time Seen by Provider: 07/07/19 12:39 Primary Care Provider: ARNOL ABEBE PA-C [Primary Care Provider] - Follow up as needed Mode of Arrival: Ambulatory Information source: Patient, Relative TRAVEL OUTSIDE OF THE [place] IN LAST 30 DAYS: No - HPI Notes: Patient states she was referred here by her family doctor. She states she was told that she had abnormal laboratories. She felt that the laboratories may indicate diabetic ketoacidosis. She states for about 1 week she has felt weak with abdominal cramping nausea vomiting and diarrhea. No new medications. She states the abdominal pain is been moderate in intensity and radiates throughout her abdomen. It is crampy. Nothing makes it better or worse. She is also had a decreased appetite. She denies any new medication changes. No fevers. No trouble with urination. - Related Data Allergies/Adverse Reactions: levofloxacin [From Levaquin] Adverse Reaction (Intermediate, Verified 05/18/19 17:39) nausea and vomiting simvastatin [From Zocor] Adverse Reaction (Intermediate, Verified 05/18/19 17:39) rash Past Medical History - General Information source: Patient - Social History Smoking Status: Never Smoker Chew tobacco use (# tins/day): No Frequency of alcohol use: None Drug Abuse: None Family History: Arthritis, Malignancy, CAD, CVA, DM, Hyperlipidemia, Hypertension, Reviewed & Not Pertinent Patient has suicidal ideation: No Patient has homicidal ideation: No - Past Medical History Cardiac Medical History: Reports: Hx Hypercholesterolemia, Hx Hypertension, Hx Heart Murmur Denies: Hx Coronary Artery Disease, Hx Heart Attack Pulmonary Medical History: Reports: Hx Asthma - MILD Denies: Hx Bronchitis, Hx COPD, Hx Pneumonia Neurological Medical History: Reports: Hx Migraine. Denies: Hx Cerebrovascular Accident, Hx Seizures Endocrine Medical History: Reports: Hx Diabetes Mellitus Type 2 Renal/ Medical History: Reports: Hx Kidney Stones. Denies: Hx Peritoneal Dialysis GI Medical History: Reports: Hx Gastroesophageal Reflux Disease, Hx Ulcer - gastric, Hx Colonoscopy, Hx Endoscopy Musculoskeletal Medical History: Reports Hx Arthritis - JOSIE KNEES/BACK, Reports Hx Musculoskeletal Trauma Psychiatric Medical History: Reports: Hx Depression Traumatic Medical History: Reports: Hx Fractures - wrist, both ankles Past Surgical History: Reports: Hx Cholecystectomy - lap marilyn, Hx Hysterectomy, Hx Orthopedic Surgery - L knee x2. Denies: Hx Pacemaker - Immunizations Immunizations up to date: Yes Hx Diphtheria, Pertussis, Tetanus Vaccination: Yes Hx Pneumococcal Vaccination: 08/19/15 Review of Systems - Review of Systems Constitutional: Malaise, Weakness. denies: Chills, Fever Cardiovascular: denies: Chest pain, Dyspnea Respiratory: denies: Cough, Short of breath -: Yes All other systems reviewed and negative Physical Exam - Vital signs Vitals: Temp Pulse Resp BP Pulse Ox 98.4 F 92 20 148/77 H 96 07/07/19 12:11 07/07/19 12:11 07/07/19 12:11 07/07/19 12:11 07/07/19 12:11 Interpretation: Hypertensive - General General appearance: Appears well, Alert - HEENT Head: Other - Patient has a nontender erythematous mass on the left zygomatic arch. Eyes: Normal Pupils: PERRL - Respiratory Respiratory status: No respiratory distress Chest status: Nontender Breath sounds: Normal Chest palpation: Normal - Cardiovascular Rhythm: Regular Heart sounds: Normal auscultation Murmur: No - Abdominal Inspection: Normal Distension: No distension Bowel sounds: Normal Tenderness: Tender - Mild diffuse tenderness to palpation Organomegaly: No organomegaly - Back Back: Normal, Nontender - Extremities General upper extremity: Normal inspection, Nontender, Normal color, Normal ROM, Normal temperature General lower extremity: Normal inspection, Nontender, Normal color, Normal ROM, Normal temperature, Normal weight bearing. No: Chalino's sign - Neurological Neuro grossly intact: Yes Cognition: Normal Orientation: AAOx4 Novi Coma Scale Eye Opening: Spontaneous Hernandez Coma Scale Verbal: Oriented Hernandez Coma Scale Motor: Obeys Commands Hernandez Coma Scale Total: 15 Speech: Normal Motor strength normal: LUE, RUE, LLE, RLE Sensory: Normal - Psychological Associated symptoms: Normal affect, Normal mood - Skin Skin Temperature: Warm Skin Moisture: Dry Skin Color: Normal Course - Re-evaluation Re-evalutation: 07/07/19 18:31 Patient reassessed at 6:15 PM. She states she still feels weak. However she has had no further vomiting or diarrhea here. Her vitals are unremarkable. Her blood sugar has come down to approximately 350. There is no other significant abnormality on CT scan or laboratories. She is not in DKA. I am going to discharge patient home and have her take her night insulin. I am also suggesting to her that she call her primary care physician in the morning and discuss a sliding scale. - Vital Signs Vital signs: Temp Pulse Resp BP Pulse Ox 98.7 F 84 16 125/64 95 07/07/19 16:51 07/07/19 16:51 07/07/19 16:51 07/07/19 16:51 07/07/19 16:51 - Laboratory Result Diagrams: 07/07/19 13:00 07/07/19 13:00 Laboratory results interpreted by me: 07/07/19 07/07/19 07/07/19 13:00 13:00 13:00 RDW 14.4 H Plt Count 136 L Sodium 130.7 L Chloride 92 L Glucose 580 H* POC Glucose AST 44 H Alkaline Phosphatase 132 H Urine Glucose (UA) >=500 H 07/07/19 18:15 RDW Plt Count Sodium Chloride Glucose POC Glucose 334 H AST Alkaline Phosphatase Urine Glucose (UA) 07/07/19 18:31 Laboratory 07/07/19 07/07/19 07/07/19 13:00 13:00 13:00 WBC 7.4 RBC 5.08 Hgb 14.1 Hct 42.7 MCV 84 MCH 27.7 MCHC 32.9 RDW 14.4 H Plt Count 136 L Seg Neutrophils % 58.4 Lymphocytes % 34.0 Monocytes % 5.2 Eosinophils % 1.7 Basophils % 0.7 Absolute Neutrophils 4.3 Absolute Lymphocytes 2.5 Absolute Monocytes 0.4 Absolute Eosinophils 0.1 Absolute Basophils 0.1 Sodium 130.7 L Potassium 4.6 Chloride 92 L Carbon Dioxide 26 Anion Gap 13 BUN 18 Creatinine 0.86 Est GFR ( Amer) > 60 Est GFR (Non-Af Amer) > 60 Glucose 580 H* POC Glucose Calcium 9.5 Total Bilirubin 0.6 Direct Bilirubin 0.4 Neonat Total Bilirubin Not Reportable Neonat Direct Bilirubin Not Reportable Neonat Indirect Bili Not Reportable AST 44 H ALT 51 Alkaline Phosphatase 132 H Total Protein 7.6 Albumin 4.3 Urine Color STRAW Urine Appearance CLEAR Urine pH 6.0 Ur Specific Valdez 1.025 Urine Protein NEGATIVE Urine Glucose (UA) >=500 H Urine Ketones NEGATIVE Urine Blood NEGATIVE Urine Nitrite NEGATIVE Urine Bilirubin NEGATIVE Urine Urobilinogen NEGATIVE Ur Leukocyte Esterase NEGATIVE Urine WBC (Auto) 0 Squamous Epi Cells Auto 1 Urine Ascorbic Acid NEGATIVE 07/07/19 18:15 WBC RBC Hgb Hct MCV MCH MCHC RDW Plt Count Seg Neutrophils % Lymphocytes % Monocytes % Eosinophils % Basophils % Absolute Neutrophils Absolute Lymphocytes Absolute Monocytes Absolute Eosinophils Absolute Basophils Sodium Potassium Chloride Carbon Dioxide Anion Gap BUN Creatinine Est GFR ( Amer) Est GFR (Non-Af Amer) Glucose POC Glucose 334 H Calcium Total Bilirubin Direct Bilirubin Neonat Total Bilirubin Neonat Direct Bilirubin Neonat Indirect Bili AST ALT Alkaline Phosphatase Total Protein Albumin Urine Color Urine Appearance Urine pH Ur Specific Valdez Urine Protein Urine Glucose (UA) Urine Ketones Urine Blood Urine Nitrite Urine Bilirubin Urine Urobilinogen Ur Leukocyte Esterase Urine WBC (Auto) Squamous Epi Cells Auto Urine Ascorbic Acid - Diagnostic Test Radiology reviewed: Image reviewed, Reports reviewed Radiology results interpreted by me: 07/07/19 18:32 Abdomen/Pelvis CT 07/07/19 14:05 IMPRESSION: Hepatic steatosis. Splenomegaly. Facial Bones CT 07/07/19 14:05 IMPRESSION: NO ACUTE FINDINGS. Discharge - Discharge Clinical Impression: Hyperglycemia due to type 1 diabetes mellitus Abdominal pain Qualifiers: Abdominal location: generalized Qualified Code(s): R10.84 - Generalized abdominal pain Condition: Stable Disposition: HOME, SELF-CARE Instructions: Abdominal Pain ([facility]) Additional Instructions: Please call your primary care doctor in the morning and discuss a sliding scale for your insulin. Referrals: ARNOL ABEBE PA-C [Primary Care Provider] - Follow up as needed
--- NOTE | 2019-07-07 16:42 | RADIOLOGY REPORT (SQ) ---
EXAM DESCRIPTION: CT FACIAL AREA WITHOUT COMPLETED DATE/TIME: 07/07/2019 4:18 pm REASON FOR STUDY: left facial swelling COMPARISON: None. TECHNIQUE: Noncontrasted images through the facial bones and orbits windowed for bone and soft tissu e. Additional coronal and sagittal reconstructed images reviewed. All images stored on PACS. All CT scanners at this facility use dose modulation, iterative reconstruction, and/or weight based d osing when appropriate to reduce radiation dose to as low as reasonably achievable (ALARA). [facility]: Dose Right [facility]: CareDose [facility]: Dose Right [facility]: Teradose 4D [facility]: Cleartrip RADIATION DOSE: mGy. LIMITATIONS: None. FINDINGS: FACIAL BONES: No fracture or bone lesion. ORBITS: Intact. No fracture. Symmetric intact globes and retroorbital soft tissues. PARANASAL SINUSES: Clear. No significant mucosal thickening, mass or fluid. No nasal polyps. Maxill delma sinus outlets are patent. SOFT TISSUES: No mass or edema. INFERIOR BRAIN: Limited view. No acute findings. OTHER: No other significant finding. IMPRESSION: NO ACUTE FINDINGS. TECHNICAL DOCUMENTATION: JOB ID: [id number] Quality ID # [id number]: Final reports with documentation of one or more dose reduction techniques (e.g., Au tomated exposure control, adjustment of the mA and/or kV according to patient size, use of iterative reconstruction technique) 2010 [employer]- All Rights Reserved Reading location - IP/workstation name: [email or web address]
--- NOTE | 2019-07-07 16:50 | RADIOLOGY REPORT (SQ) ---
EXAM DESCRIPTION: CT ABD/PELVIS WITH IV ONLY COMPLETED DATE/TIME: 07/07/2019 4:26 pm REASON FOR STUDY: abd pain COMPARISON: 10/31/2016 TECHNIQUE: CT scan of the abdomen and pelvis performed using helical scanning technique with dynamic intravenous contrast injection. No oral contrast. Images reviewed with lung, soft tissue, and bone windows. Reconstructed coronal and sagittal MPR images reviewed. Delayed images for evaluation of the urinary system also acquired. All images stored on PACS. All CT scanners at this facility use dose modulation, iterative reconstruction, and/or weight based d osing when appropriate to reduce radiation dose to as low as reasonably achievable (ALARA). [facility]: Dose Right [facility]: CareDose [facility]: Dose Right [facility]: Teradose 4D [facility]: [employer] CONTRAST TYPE AND DOSE: contrast/concentration: Isovue 350.00 mg/ml; Total Contrast Delivered: 100.0 ml; Total Saline Delivered: 73.0 ml RENAL FUNCTION: BUN 18 creatinine 0.86 RADIATION DOSE: CT Rad equipment meets quality standard of care and radiation dose reduction techniq ues were employed. CTDIvol: 24.0 - 30.7 mGy. DLP: 4299 mGy-cm.. LIMITATIONS: None. FINDINGS: LOWER CHEST: No significant findings. No nodules or infiltrates. LIVER: Diffusely hypoattenuating. No masses. SPLEEN: Splenomegaly is present. PANCREAS: No masses. No significant calcifications. No adjacent inflammation or peripancreatic fluid collections. Pancreatic duct not dilated. GALLBLADDER: Surgically absent. ADRENAL GLANDS: No significant masses or asymmetry. RIGHT KIDNEY AND URETER: No solid masses. No significant calcifications. No hydronephrosis or hyd roureter. LEFT KIDNEY AND URETER: No solid masses. No significant calcifications. No hydronephrosis or hydr oureter. AORTA AND VESSELS: No aneurysm. No dissection. Renal arteries, SMA, celiac without stenosis. RETROPERITONEUM: No retroperitoneal adenopathy, hemorrhage or masses. BOWEL AND PERITONEAL CAVITY: No masses or inflammatory changes. No free fluid or peritoneal masses. APPENDIX: Normal. PELVIS: No mass. No free fluid. Normal bladder. ABDOMINAL WALL: No masses. No hernias. BONES: No significant or acute findings. OTHER: No other significant finding. IMPRESSION: Hepatic steatosis. Splenomegaly. TECHNICAL DOCUMENTATION: JOB ID: [id number] Quality ID # [id number]: Final reports with documentation of one or more dose reduction techniques (e.g., Au tomated exposure control, adjustment of the mA and/or kV according to patient size, use of iterative reconstruction technique) 2010 [employer]- All Rights Reserved Reading location - IP/workstation name: [email or web address]
[2019-07-07 19:32] VITALS: BP 139/77
== END 2019-07-07 19:32 | disposition home or self-care (01) ==
LOC: ER 12:05
DX: E10.65 Type 1 diabetes mellitus with hyperglycemia (principal); R10.84 Generalized abdominal pain; R53.1 Weakness; K76.0 Fatty (change of) liver, not elsewhere classified; R16.1 Splenomegaly, not elsewhere classified; E78.00 Pure hypercholesterolemia, unspecified; I10 Essential (primary) hypertension; Z87.442 Personal history of urinary calculi; Z90.49 Acquired absence of other specified parts of digestive tract; Z90.710 Acquired absence of both cervix and uterus
CPT/HCPCS: 99284; 96361; 96374; 96375; 36415; 82962; 85025; 80053; 81001; 70486; 74177; J2270; J1815; J2405; J7030

== ENCOUNTER 2019-09-08 21:48 | Emergency (ER) | payer OTHER, MEDICAID ==
--- NOTE | 2019-09-08 22:09 | ER Document Report ---
ED Medical Screen (RME) - General Chief Complaint: Abdominal Pain Stated Complaint: ABDOMINAL PAIN Time Seen by Provider: 09/08/19 22:06 Primary Care Provider: ARNOL ABEBE PA-C [Primary Care Provider] - Follow up as needed Mode of Arrival: Ambulatory Information source: Patient Notes: 54-year-old female presents to ED for right lower quadrant abdominal pain. She states it started started on Sunday today is Sunday. States she had a temperature earlier today of 101.5. First time she has had a fever. Nausea and vomiting diarrhea. She states she vomited twice numerous diarrhea stools. States she has had a full hysterectomy. She has a history of high blood pressure, diabetic type II, high cholesterol GERD, arthritis, cholecystectomy, hysterectomy. She states she does not smoke drink or use any illicit drugs. Patient is alert oriented respirations regular nonlabored speaking in full sentences. I have greeted and performed a rapid initial assessment of this patient. A comprehensive ED assessment and evaluation of the patient, analysis of test results and completion of medical decision making process will be conducted by an additional ED providers. TRAVEL OUTSIDE OF THE [place] IN LAST 30 DAYS: No - Related Data Allergies/Adverse Reactions: levofloxacin [From Levaquin] Adverse Reaction (Intermediate, Verified 05/18/19 17:39) nausea and vomiting simvastatin [From Zocor] Adverse Reaction (Intermediate, Verified 05/18/19 17:39) rash Past Medical History - Past Medical History Cardiac Medical History: Reports: Hx Hypercholesterolemia, Hx Hypertension, Hx Heart Murmur Denies: Hx Coronary Artery Disease, Hx Heart Attack Pulmonary Medical History: Reports: Hx Asthma - MILD Denies: Hx Bronchitis, Hx COPD, Hx Pneumonia Neurological Medical History: Reports: Hx Migraine. Denies: Hx Cerebrovascular Accident, Hx Seizures Endocrine Medical History: Reports: Hx Diabetes Mellitus Type 2 Renal/ Medical History: Reports: Hx Kidney Stones. Denies: Hx Peritoneal Dialysis GI Medical History: Reports: Hx Gastroesophageal Reflux Disease, Hx Ulcer - gastric, Hx Colonoscopy, Hx Endoscopy Musculoskeltal Medical History: Reports Hx Arthritis - JOSIE KNEES/BACK, Reports Hx Musculoskeletal Trauma Psychiatric Medical History: Reports: Hx Depression Traumatic Medical History: Reports: Hx Fractures - wrist, both ankles Past Surgical History: Reports: Hx Cholecystectomy - lap marilyn, Hx Hysterectomy, Hx Orthopedic Surgery - L knee x2. Denies: Hx Pacemaker - Immunizations Immunizations up to date: Yes Hx Diphtheria, Pertussis, Tetanus Vaccination: Yes Physical Exam - Vital signs Vitals: Temp Pulse Resp BP Pulse Ox 98.0 F 96 18 153/76 H 97 09/08/19 21:58 09/08/19 21:58 09/08/19 21:58 09/08/19 21:58 09/08/19 21:58 Course - Vital Signs Vital signs: Temp Pulse Resp BP Pulse Ox 98.0 F 96 18 153/76 H 97 09/08/19 21:58 09/08/19 21:58 09/08/19 21:58 09/08/19 21:58 09/08/19 21:58 Doctor's Discharge - Discharge Referrals: ARNOL ABEBE PA-C [Primary Care Provider] - Follow up as needed
[2019-09-08] MEDS ORDERED: ONDANSETRON 4 MG TAB.RAPDIS PO ONE (22:10)
[2019-09-08 23:12] LABS: ABSOLUTE BASOPHILS # (AUTO) 0.1 10^3/uL (0.0-0.2); ABSOLUTE EOSINOPHILS # (AUTO) 0.2 10^3/uL (0.0-0.6); ABSOLUTE LYMPHOCYTES (AUTO) 2.4 10^3/uL (0.5-4.7); ABSOLUTE MONOCYTES (AUTO) 0.4 10^3/uL (0.1-1.4); ABSOLUTE NEUT (AUTO) 4.5 10^3/uL (1.7-8.2); BASOPHILS % (AUTO) 0.8 % (0-2); EOSINOPHILS % (AUTO) 2.2 % (0-6); HEMATOCRIT 39.1 % (36.0-47.0); HEMOGLOBIN 12.9 g/dL (12.0-15.5); LYMPHOCYTES % (AUTO) 31.8 % (13-45); MEAN CORPUSCULAR HEMOGLOBIN 27.4 pg (27.0-33.4); MEAN CORPUSCULAR HGB CONC 32.9 g/dL (32.0-36.0); MEAN CORPUSCULAR VOLUME 83 fl (80-97); PLATELET COUNT 154 10^3/uL (150-450); RED CELL DISTRIBUTION WIDTH 15.3 % (11.5-14.0); SEGMENTED NEUTROPHILS % (AUTO) 60.2 % (42-78); TOTAL CELLS COUNTED % (AUTO) 100 %; WHITE BLOOD COUNT 7.4 10^3/uL (4.0-10.5)
[2019-09-08 23:18] LABS: APPEARANCE,URINE SLIGHTLY-CLOUDY; BILIRUBIN,URINE NEGATIVE (NEGATIVE); COLOR,URINE YELLOW; GLUCOSE, URINE 50 mg/dL (NEGATIVE); KETONES,URINE NEGATIVE (NEGATIVE); PROTEIN,URINE NEGATIVE (NEGATIVE); URINE SPECIFIC GRAVITY 1.021; UROBILINOGEN,URINE NEGATIVE mg/dL (<2.0)
[2019-09-08 23:20] LABS: ALBUMIN 4.3 g/dL (3.5-5.0); ALKALINE PHOSPHATASE 88 U/L (38-126); ANION GAP 10 (5-19); ASPARTATE AMINO TRANSFERASE 44 U/L (14-36); BILIRUBIN,DIRECT 0.2 mg/dL (0.0-0.4); BILIRUBIN,TOTAL 0.4 mg/dL (0.2-1.3); BLOOD UREA NITROGEN 23 mg/dL (7-20); CALCIUM 9.6 mg/dL (8.4-10.2); CARBON DIOXIDE 30 mmol/L (22-30); CHLORIDE 99 mmol/L (98-107); GLUCOSE 213 mg/dL (75-110); POTASSIUM 4.5 mmol/L (3.6-5.0); TOTAL PROTEIN 7.9 g/dL (6.3-8.2)
[2019-09-08] MEDS ORDERED: ONDANSETRON HCL INJ/PF 4 MG/2 ML SDV IV ONE (23:37)
[2019-09-08] MEDS ORDERED: MORPHINE SULFATE 10 MG/ML INJ IV ONE (23:37)
--- NOTE | 2019-09-08 23:38 | ER Document Report ---
ED General - General Chief Complaint: Abdominal Pain Stated Complaint: ABDOMINAL PAIN Time Seen by Provider: 09/08/19 22:06 Primary Care Provider: ARNOL ABEBE PA-C [Primary Care Provider] - Follow up as needed Mode of Arrival: Ambulatory TRAVEL OUTSIDE OF THE [place] IN LAST 30 DAYS: No - HPI Notes: 54-year-old female with prior history of cholecystectomy, hysterectomy, presents with right lower quadrant pain and tenderness. Patient also describes a prior history of renal stones as well as diverticulitis. She does still have her appendix. She describes vaginal onset of the last 2-2 half days of right lower quadrant pain right mid quadrant pain. Moderate intensity, severe at times, nausea but no vomiting. Nonradiating except as described. No other modifying factors, no other associated symptoms, no other provocative or palliative fac tors. - Related Data Allergies/Adverse Reactions: levofloxacin [From Levaquin] Adverse Reaction (Intermediate, Verified 09/08/19 22:26) nausea and vomiting simvastatin [From Zocor] Adverse Reaction (Intermediate, Verified 09/08/19 22:26) rash Past Medical History - General Information source: Patient - Social History Smoking Status: Former Smoker Chew tobacco use (# tins/day): No Frequency of alcohol use: None Drug Abuse: None Family History: Arthritis, Malignancy, CAD, CVA, DM, Hyperlipidemia, Hypertension, Reviewed & Not Pertinent Patient has suicidal ideation: No Patient has homicidal ideation: No - Past Medical History Cardiac Medical History: Reports: Hx Hypercholesterolemia, Hx Hypertension, Hx Heart Murmur Denies: Hx Coronary Artery Disease, Hx Heart Attack Pulmonary Medical History: Reports: Hx Asthma - MILD Denies: Hx Bronchitis, Hx COPD, Hx Pneumonia Neurological Medical History: Reports: Hx Migraine. Denies: Hx Cerebrovascular Accident, Hx Seizures Endocrine Medical History: Reports: Hx Diabetes Mellitus Type 2 Renal/ Medical History: Reports: Hx Kidney Stones. Denies: Hx Peritoneal Dialysis GI Medical History: Reports: Hx Gastroesophageal Reflux Disease, Hx Ulcer - gastric, Hx Colonoscopy, Hx Endoscopy Musculoskeletal Medical History: Reports Hx Arthritis - JOSIE KNEES/BACK, Reports Hx Musculoskeletal Trauma Psychiatric Medical History: Reports: Hx Depression Traumatic Medical History: Reports: Hx Fractures - wrist, both ankles Past Surgical History: Reports: Hx Cholecystectomy - lap marilyn, Hx Hysterectomy, Hx Orthopedic Surgery - L knee x2. Denies: Hx Pacemaker - Immunizations Immunizations up to date: Yes Hx Diphtheria, Pertussis, Tetanus Vaccination: Yes Hx Pneumococcal Vaccination: 08/19/15 Review of Systems - Review of Systems Notes: Review of systems as in the history of present illness, otherwise negative x 10 systems. Physical Exam - Vital signs Vitals: Temp Pulse Resp BP Pulse Ox 98.0 F 96 18 153/76 H 97 09/08/19 21:58 09/08/19 21:58 09/08/19 21:58 09/08/19 21:58 09/08/19 21:58 - Notes Notes: General: Well developed . HEENT: Normocephalic, atraumatic. Pupils equal round reactive to light. No JVD. Chest: No trauma. Respiratory: Good air exchange, normal excursion. Cardiac: Regular rhythm. No murmurs or gallops. Abdomen: Soft, moderate right lower quadrant and tenderness to McBurney's point Back: No asymmetry or gross abnormality. Motor: Grossly normal power and tone. Neurologic: Alert, nonfocal. Cranial nerves II-12 are intact. Sensation intact. Vascular: Well perfused. Normal peripheral pulses. Skin: No petechiae or purpura. Course - Re-evaluation Re-evalutation: 09/08/19 23:36 Obese 54-year-old female with right lower quadrant pain and tenderness concerning for possible appendicitis, consider comp gated diverticulitis, mesenteric adenopathy, less likely ischemic colitis in the absence of diarrhea or bloody stool. Patient was evaluated by the [facility] provider prior to my evaluation. Studies / interventions have been ordered by this provider and may still be pending. Initial labs are unremarkable except for slight hematuria and ketonuria. Given her persistent tenderness and pain, we will proceed with CT imaging. Treat with IV analgesics, reassess. 09/09/19 02:00 CT imaging shows no acute abnormality. Repeat examination shows benign abdomen. Discharged home to follow close with a primary care physician, return if worsening. ~24-hour follow-up. - Vital Signs Vital signs: Temp Pulse Resp BP Pulse Ox 98.0 F 96 18 153/76 H 97 09/08/19 21:58 09/08/19 21:58 09/08/19 21:58 09/08/19 21:58 09/08/19 21:58 - Laboratory Result Diagrams: 09/08/19 22:40 09/08/19 22:40 Laboratory results interpreted by me: 09/08/19 09/08/19 09/08/19 22:40 22:40 22:40 RDW 15.3 H BUN 23 H Glucose 213 H AST 44 H Urine Glucose (UA) 50 H Urine Blood SMALL H Discharge - Discharge Clinical Impression: Abdominal pain Qualifiers: Abdominal location: unspecified location Qualified Code(s): R10.9 - Unspecified abdominal pain Condition: Stable Disposition: HOME, SELF-CARE Instructions: Abdominal Pain ([facility]) Referrals: ARNOL ABEBE PA-C [Primary Care Provider] - Follow up tomorrow
--- NOTE | 2019-09-09 01:41 | RADIOLOGY REPORT (SQ) ---
CT ABDOMEN PELVIS WITH IV CONTRAST EXAM DATE: 09/08/2019 11:34 PM CDT HISTORY: Right lower quadrant pain. COMPARISON: 07/07/2019 TECHNIQUE: CT scan of the abdomen and pelvis was performed with IV contrast. This exam was performed according to our departmental dose-optimization program, which includes automated exposure control, adjustment of the mA and/or kV according to patient size and/or use of iterative reconstruction technique. FINDINGS: The lung bases are clear. No pleural or pericardial effusions. There has been a prior cholecystectomy. Hepatic steatosis. Spleen, pancreas, adrenal glands, and kidneys are unremarkable without hydronephrosis or urinary stones. There has been a prior hysterectomy. No small bowel obstruction. The appendix is normal. No evidence of acute diverticulitis. No adenopathy, free fluid, or free air is identified. There are mild degenerative changes of the spine. The aorta is normal caliber. No pathologic body wall hernia is seen. IMPRESSION: Normal appendix.
[2019-09-09 02:48] VITALS: BP 142/70
== END 2019-09-09 02:48 | disposition home or self-care (01) ==
LOC: ER 21:48
DX: R10.31 Right lower quadrant pain (principal); R10.813 Right lower quadrant abdominal tenderness; R10.9 Unspecified abdominal pain; R11.0 Nausea; R31.9 Hematuria, unspecified; R82.4 Acetonuria; I10 Essential (primary) hypertension; E11.9 Type 2 diabetes mellitus without complications; J45.909 Unspecified asthma, uncomplicated; Z90.49 Acquired absence of other specified parts of digestive tract; Z90.710 Acquired absence of both cervix and uterus; Z87.891 Personal history of nicotine dependence
CPT/HCPCS: 36415; 85025; 80053; 81001; 74177; S0119; J2270; J2405; 96374; 96375; 99284

== ENCOUNTER 2019-11-24 07:03 | Emergency (ER) | payer OTHER, MEDICAID ==
--- NOTE | 2019-11-24 07:43 | ER Document Report ---
ED General - General Chief Complaint: Abdominal Pain Stated Complaint: ABDOMINAL PAIN,RIGHT FLANK PAIN Primary Care Provider: ARNOL ABEBE PA-C [Primary Care Provider] - Follow up as needed Cannot obtain history due to: Unstable vital signs Notes: 54-year-old female with history of renal stones, cholecystitis status post cholecystectomy, diverticulitis presents with laminal pain, periumbilical radiating to the right flank and back onset Sunday, 3 days worth, constant, preventing her from eating well. Positive nausea vomiting. No diarrhea no fever. Denies urinary symptoms. No weight loss. Other than cholecystectomy no other surgeries. Seen here twice in the last 3 months with negative abdominal p ain work-ups. TRAVEL OUTSIDE OF THE [place] IN LAST 30 DAYS: No - Related Data Allergies/Adverse Reactions: levofloxacin [From Levaquin] Adverse Reaction (Intermediate, Verified 09/08/19 22:26) nausea and vomiting simvastatin [From Zocor] Adverse Reaction (Intermediate, Verified 09/08/19 22:26) rash Past Medical History - Social History Smoking Status: Never Smoker Frequency of alcohol use: None Drug Abuse: None Family History: Arthritis, Malignancy, CAD, CVA, DM, Hyperlipidemia, Hyper tension, Reviewed & Not Pertinent Patient has suicidal ideation: No Patient has homicidal ideation: No - Past Medical History Cardiac Medical History: Reports: Hx Hypercholesterolemia, Hx Hypertension, Hx Heart Murmur Denies: Hx Coronary Artery Disease, Hx Heart Attack Pulmonary Medical History: Reports: Hx Asthma - MILD Denies: Hx Bronchitis, Hx COPD, Hx Pneumonia Neurological Medical History: Reports: Hx Migraine. Denies: Hx Cerebrovascular Accident, Hx Seizures Endocrine Medical History: Reports: Hx Diabetes Mellitus Type 2 Renal/ Medical History: Reports: Hx Kidney Stones. Denies: Hx Peritoneal Dialysis GI Medical History: Reports: Hx Gastroesophageal Reflux Disease, Hx Ulcer - gastric, Hx Colonoscopy, Hx Endoscopy Musculoskeletal Medical History: Reports Hx Arthritis - JOSIE KNEES/BACK, Reports Hx Musculoskeletal Trauma Psychiatric Medical History: Reports: Hx Depression Traumatic Medical History: Reports: Hx Fractures - wrist, both ankles Past Surgical History: Reports: Hx Cholecystectomy - lap marilyn, Hx Hysterectomy, Hx Orthopedic Surgery - L knee x2. Denies: Hx Pacemaker - Immunizations Immunizations up to date: Yes Hx Diphtheria, Pertussis, Tetanus Vaccination: Yes Hx Pneumococcal Vaccination: 08/19/15 Review of Systems - Review of Systems Notes: REVIEW OF SYSTEMS GEN: Denies fever, chills, weight loss ENT: Denies sore throat, nasal discharge, ear pain EYES: Denies blurry vision, eye pain, discharge CV: Denies chest pain, palpitations, edema RESP: Denies cough, shortness of breath, wheezing GI: See HPI MSK: Denies joint pain/swelling, edema, SKIN: Denies rash, skin lesions LYMPH: Denies swollen glands/lymph nodes NEURO: Denies headache, focal weakness or numbness, dizziness PSYCH: Denies depression, suicidal or homicidal ideation PHYSICAL EXAMINATION General: No acute distress, well-nourished Head: Atraumatic, normocephalic ENT: Mouth normal, oropharynx moist, no exudates or tonsillar enlargement Eyes: Conjunctiva normal, pupils equal, lids normal Neck: No JVD, supple, no guarding CVS: Normal rate, regular rhythm, no murmurs Resp: No resp distress, equal and normal breath sounds bilaterally GI: Obese periumbilical tenderness no guarding Ext: No deformities, no edema, normal range of motion in upper and lower ext Back: Right CVA tenderness, no midline TTP Skin: No rash, warm Lymphatic: No lymphadeopathy noted Neuro: Awake, alert. Face symmetric. GCS 15. Physical Exam - Vital signs Vitals: Temp Pulse Resp BP Pulse Ox 97.4 F 86 16 152/77 H 97 11/24/19 07:15 11/24/19 07:15 11/24/19 07:15 11/24/19 07:15 11/24/19 07:15 Course - Re-evaluation Re-evalutation: 11/24/19 12:38 Presents with paramedical abdominal pain and vomiting. History of diverticulitis and kidney stones. Urine does not show any infection or stones. CT is unremarkable. Her lipase is slightly elevated. I suspect this is gastritis plus or minus early pancreatitis pain after seeing around medications he felt much better was tolerating p.o. Will discharge home with emesis and pain control and gave her strict return precautions we also discussed diet for pancreatitis. She does not drink does not have a gallbladder. I have discussed with the patient there likely diagnosis, aftercare plan, follow-up plans and my usual and customary return precautions. They verbalized understanding of this. - Vital Signs Vital signs: Temp Pulse Resp BP Pulse Ox 97.4 F 91 16 128/79 H 98 11/24/19 09:42 11/24/19 09:42 11/24/19 09:42 11/24/19 09:42 11/24/19 09:42 - Laboratory Result Diagrams: 11/24/19 07:46 11/24/19 07:46 Laboratory results interpreted by me: 11/24/19 11/24/19 11/24/19 07:46 07:46 07:54 RDW 14.6 H Sodium 136.1 L BUN 22 H Glucose 165 H AST 48 H Total Protein 8.5 H Lipase 507.9 H Urine Protein 30 H Urine Blood SMALL H - Diagnostic Test Radiology reviewed: Image reviewed, Reports reviewed Discharge - Discharge Clinical Impression: Periumbilical abdominal pain, Elevated lipase Condition: Good Disposition: HOME, SELF-CARE Instructions: Abdominal Pain ([facility]), Oral Narcotic Medication ([facility]) Prescriptions: Oxycodone HCl/Acetaminophen [Percocet 5-325 mg Tablet] 1 - 2 tab PO Q4H PRN #15 tablet PRN Reason: Promethazine HCl [Phenergan 25 mg Supp.rect] 1 supp [place] Q6H #12 supp.rect Referrals: ARNOL ABEBE PA-C [Primary Care Provider] - Follow up as needed
[2019-11-24 08:11] LABS: ABSOLUTE BASOPHILS # (AUTO) 0.1 10^3/uL (0.0-0.2); ABSOLUTE EOSINOPHILS # (AUTO) 0.4 10^3/uL (0.0-0.6); ABSOLUTE LYMPHOCYTES (AUTO) 3.1 10^3/uL (0.5-4.7); ABSOLUTE MONOCYTES (AUTO) 0.4 10^3/uL (0.1-1.4); ABSOLUTE NEUT (AUTO) 4.4 10^3/uL (1.7-8.2); BASOPHILS % (AUTO) 0.9 % (0-2); EOSINOPHILS % (AUTO) 4.2 % (0-6); HEMATOCRIT 40.8 % (36.0-47.0); HEMOGLOBIN 13.8 g/dL (12.0-15.5); MEAN CORPUSCULAR HEMOGLOBIN 28.3 pg (27.0-33.4); MEAN CORPUSCULAR HGB CONC 33.9 g/dL (32.0-36.0); MEAN CORPUSCULAR VOLUME 84 fl (80-97); MONOCYTES % (AUTO) 4.6 % (3-13); PLATELET COUNT 156 10^3/uL (150-450); RED BLOOD COUNT 4.89 10^6/uL (3.72-5.28); RED CELL DISTRIBUTION WIDTH 14.6 % (11.5-14.0); SEGMENTED NEUTROPHILS % (AUTO) 53.3 % (42-78); TOTAL CELLS COUNTED % (AUTO) 100 %; WHITE BLOOD COUNT 8.2 10^3/uL (4.0-10.5)
[2019-11-24 08:19] LABS: APPEARANCE,URINE CLOUDY; BILIRUBIN,URINE NEGATIVE (NEGATIVE); COLOR,URINE YELLOW; GLUCOSE, URINE NEGATIVE (NEGATIVE); KETONES,URINE NEGATIVE (NEGATIVE); LEUKOCYTE ESTERASE,URINE NEGATIVE (NEGATIVE); NITRITE,URINE NEGATIVE (NEGATIVE); PROTEIN,URINE 30 mg/dL (NEGATIVE); UROBILINOGEN,URINE NEGATIVE mg/dL (<2.0)
[2019-11-24 08:20] LABS: ALBUMIN 4.6 g/dL (3.5-5.0); ALKALINE PHOSPHATASE 92 U/L (38-126); ANION GAP 12 (5-19); ASPARTATE AMINO TRANSFERASE 48 U/L (14-36); BILIRUBIN,DIRECT 0.2 mg/dL (0.0-0.4); BILIRUBIN,TOTAL 0.7 mg/dL (0.2-1.3); BLOOD UREA NITROGEN 22 mg/dL (7-20); CALCIUM 9.8 mg/dL (8.4-10.2); CARBON DIOXIDE 26 mmol/L (22-30); CHLORIDE 98 mmol/L (98-107); GLUCOSE 165 mg/dL (75-110); POTASSIUM 4.3 mmol/L (3.6-5.0); TOTAL PROTEIN 8.5 g/dL (6.3-8.2)
[2019-11-24] MEDS ORDERED: DICYCLOMINE HCL 20 MG TABLET PO ONE (09:01)
[2019-11-24] MEDS ORDERED: MAG HYDROX/AL HYDROX/SIMETH SUSP 30 ML UDCUP PO PRN (09:01)
--- NOTE | 2019-11-24 09:03 | RADIOLOGY REPORT (SQ) ---
EXAM DESCRIPTION: CT ABD/PELVIS WITH IV ONLY COMPLETED DATE/TIME: 11/24/2019 8:47 am REASON FOR STUDY: Abdominal pain, history of stones/diverticulitis COMPARISON: 09/09/2019 TECHNIQUE: CT scan of the abdomen and pelvis performed using helical scanning technique with dynamic intravenous contrast injection. No oral contrast. Images reviewed with lung, soft tissue, and bone windows. Reconstructed coronal and sagittal MPR images reviewed. Delayed images for evaluation of the urinary system also acquired. All images stored on PACS. All CT scanners at this facility use dose modulation, iterative reconstruction, and/or weight based d osing when appropriate to reduce radiation dose to as low as reasonably achievable (ALARA). [facility]: Dose Right [facility]: CareDose [facility]: Dose Right [facility]: Teradose 4D [facility]: [employer] CONTRAST TYPE AND DOSE: contrast/concentration: Isovue 350.00 mg/ml; Total Contrast Delivered: 100.0 ml; Total Saline Delivered: 62.4 ml RENAL FUNCTION: Creatinine 0.88 RADIATION DOSE: CT Rad equipment meets quality standard of care and radiation dose reduction techniq ues were employed. CTDIvol: 31.4 - 38.5 mGy. DLP: 5942 mGy-cm.. LIMITATIONS: None. FINDINGS: LOWER CHEST: No significant findings. No nodules or infiltrates. LIVER: Hepatic steatosis. No focal lesions. No intrahepatic ductal dilation. SPLEEN: Normal size. No focal lesions. PANCREAS: No masses. No significant calcifications. No adjacent inflammation or peripancreatic fluid collections. Pancreatic duct not dilated. Fatty replacement. GALLBLADDER: Surgically absent. ADRENAL GLANDS: No significant masses or asymmetry. RIGHT KIDNEY AND URETER: No solid masses. No significant calcifications. No hydronephrosis or hyd roureter. LEFT KIDNEY AND URETER: No solid masses. No definite calcifications. No significant calcifications . Unchanged pelvic phlebolith near the distal left ureter. No hydronephrosis or hydroureter. AORTA AND VESSELS: No aneurysm. No dissection. Renal arteries, SMA, celiac without stenosis. RETROPERITONEUM: No retroperitoneal adenopathy, hemorrhage or masses. BOWEL AND PERITONEAL CAVITY: No masses or inflammatory changes. No free fluid or peritoneal masses. APPENDIX: Normal. PELVIS: No mass. No free fluid. Normal bladder. ABDOMINAL WALL: No hernia. Superficial anterior subcutaneous soft tissue densities, likely from prio r subcutaneous injections. BONES: No acute bony abnormality. No suspicious lesions. Mild lower lumbar facet arthropathy. OTHER: No other significant finding. IMPRESSION: 1. No evidence of acute intra-abdominal/pelvic process. No nephrolithiasis. Normal ap pendix. 2. Hepatic steatosis. TECHNICAL DOCUMENTATION: JOB ID: [id number] Quality ID # [id number]: Final reports with documentation of one or more dose reduction techniques (e.g., Au tomated exposure control, adjustment of the mA and/or kV according to patient size, use of iterative reconstruction technique) 2010 [employer]- All Rights Reserved Reading location - IP/workstation name: [email or web address]
[2019-11-24] MEDS ORDERED: OXYCODONE-ACETAMINOPHEN 5-325 MG TABLET PO ONE (09:33)
[2019-11-24 09:43] VITALS: BP 128/79
== END 2019-11-24 09:45 | disposition home or self-care (01) ==
LOC: ER 07:03
DX: R10.33 Periumbilical pain (principal); R79.89 Other specified abnormal findings of blood chemistry; R10.815 Periumbilic abdominal tenderness; R10.9 Unspecified abdominal pain; M54.9 Dorsalgia, unspecified; R11.2 Nausea with vomiting, unspecified; I10 Essential (primary) hypertension; E11.9 Type 2 diabetes mellitus without complications; J45.909 Unspecified asthma, uncomplicated; Z90.49 Acquired absence of other specified parts of digestive tract; Z87.19 Personal history of other diseases of the digestive system; Z87.442 Personal history of urinary calculi; Z87.11 Personal history of peptic ulcer disease
CPT/HCPCS: 99284; 36415; 83690; 85025; 80053; 81001; 74177; J3490

== ENCOUNTER 2019-12-02 20:53 | Emergency (ER) | payer OTHER, MEDICAID ==
[2019-12-02 21:00] VITALS: BP 150/78
[2019-12-02] MEDS ORDERED: NORMAL SALINE 1000 ML 1,000 ML IV ONE (21:21)
[2019-12-02] MEDS ORDERED: ONDANSETRON HCL INJ/PF 4 MG/2 ML SDV IV ONE (21:21)
--- NOTE | 2019-12-02 21:22 | ER Document Report ---
ED Medical Screen (RME) - General Chief Complaint: Abdominal Pain Stated Complaint: ABDOMINAL PAIN/SIDE POLA Time Seen by Provider: 12/02/19 21:19 Primary Care Provider: ARNOL ABEBE PA-C [Primary Care Provider] - Follow up as needed Mode of Arrival: Ambulatory Information source: Patient Notes: 54-year-old female patient presenting to the emergency department chief complaint of right-sided abdominal pain. Patient reports pain ongoing for about 1 week. She reports associated nausea with diarrhea, denies vomiting. Denies fevers. She states she was seen here 1 week ago and diagnosed with pancreatitis, she states the pain has gotten worse since then. Exam: Tenderness to the right upper and lower quadrants. I have greeted and performed a rapid initial assessment of this patient. A comprehensive ED assessment and evaluation of the patient, analysis of test results and completion of the medical decision making process will be conducted by additional ED providers. I have specifically instructed the patient or family members with the patient to immediately return to any nursing staff should anything change in the patient's condition or with their chief complaint. TRAVEL OUTSIDE OF THE [place] IN LAST 30 DAYS: No - Related Data Allergies/Adverse Reactions: levofloxacin [From Levaquin] Adverse Reaction (Intermediate, Verified 12/02/19 21:20) nausea and vomiting simvastatin [From Zocor] Adverse Reaction (Intermediate, Verified 12/02/19 21:20) rash Past Medical History - Past Medical History Cardiac Medical History: Reports: Hx Hypercholesterolemia, Hx Hypertension, Hx Heart Murmur Denies: Hx Coronary Artery Disease, Hx Heart Attack Pulmonary Medical History: Reports: Hx Asthma - MILD Denies: Hx Bronchitis, Hx COPD, Hx Pneumonia Neurological Medical History: Reports: Hx Migraine. Denies: Hx Cerebrovascular Accident, Hx Seizures Endocrine Medical History: Reports: Hx Diabetes Mellitus Type 2 Renal/ Medical History: Reports: Hx Kidney Stones. Denies: Hx Peritoneal Dialysis GI Medical History: Reports: Hx Gastroesophageal Reflux Disease, Hx Ulcer - gastric, Hx Colonoscopy, Hx Endoscopy Musculoskeltal Medical History: Reports Hx Arthritis - JOSIE KNEES/BACK, Reports Hx Musculoskeletal Trauma Psychiatric Medical History: Reports: Hx Depression Traumatic Medical History: Reports: Hx Fractures - wrist, both ankles Past Surgical History: Reports: Hx Cholecystectomy - lap marilyn, Hx Hysterectomy, Hx Orthopedic Surgery - L knee x2. Denies: Hx Pacemaker - Immunizations Immunizations up to date: Yes Hx Diphtheria, Pertussis, Tetanus Vaccination: Yes Physical Exam - Vital signs Vitals: Temp Pulse Resp BP Pulse Ox 98.1 F 91 21 H 150/78 H 97 12/02/19 20:58 12/02/19 20:58 12/02/19 20:58 12/02/19 20:58 12/02/19 20:58 Course - Vital Signs Vital signs: Temp Pulse Resp BP Pulse Ox 98.1 F 91 21 H 150/78 H 97 12/02/19 20:58 12/02/19 20:58 12/02/19 20:58 12/02/19 20:58 12/02/19 20:58 Doctor's Discharge - Discharge Referrals: ARNOL ABEBE PA-C [Primary Care Provider] - Follow up as needed
[2019-12-02 22:20] LABS: ABSOLUTE EOSINOPHILS # (AUTO) 0.3 10^3/uL (0.0-0.6); ABSOLUTE LYMPHOCYTES (AUTO) 2.2 10^3/uL (0.5-4.7); ABSOLUTE MONOCYTES (AUTO) 0.2 10^3/uL (0.1-1.4); ABSOLUTE NEUT (AUTO) 3.6 10^3/uL (1.7-8.2); BASOPHILS % (AUTO) 0.7 % (0-2); EOSINOPHILS % (AUTO) 4.3 % (0-6); HEMATOCRIT 41.4 % (36.0-47.0); HEMOGLOBIN 13.8 g/dL (12.0-15.5); LYMPHOCYTES % (AUTO) 34.1 % (13-45); MEAN CORPUSCULAR HEMOGLOBIN 28.2 pg (27.0-33.4); MEAN CORPUSCULAR HGB CONC 33.3 g/dL (32.0-36.0); MEAN CORPUSCULAR VOLUME 85 fl (80-97); MONOCYTES % (AUTO) 3.4 % (3-13); PLATELET COUNT 158 10^3/uL (150-450); RED CELL DISTRIBUTION WIDTH 14.8 % (11.5-14.0); SEGMENTED NEUTROPHILS % (AUTO) 57.5 % (42-78); TOTAL CELLS COUNTED % (AUTO) 100 %; WHITE BLOOD COUNT 6.3 10^3/uL (4.0-10.5)
[2019-12-02 22:24] LABS: APPEARANCE,URINE CLOUDY; BILIRUBIN,URINE NEGATIVE (NEGATIVE); COLOR,URINE YELLOW; GLUCOSE, URINE NEGATIVE (NEGATIVE); KETONES,URINE NEGATIVE (NEGATIVE); LEUKOCYTE ESTERASE,URINE TRACE (NEGATIVE); NITRITE,URINE NEGATIVE (NEGATIVE); PROTEIN,URINE NEGATIVE (NEGATIVE)
[2019-12-02 22:28] LABS: ALBUMIN 4.6 g/dL (3.5-5.0); ALKALINE PHOSPHATASE 100 U/L (38-126); ANION GAP 11 (5-19); ASPARTATE AMINO TRANSFERASE 48 U/L (14-36); BILIRUBIN,DIRECT 0.4 mg/dL (0.0-0.4); BILIRUBIN,TOTAL 0.5 mg/dL (0.2-1.3); BLOOD UREA NITROGEN 20 mg/dL (7-20); CALCIUM 9.9 mg/dL (8.4-10.2); CARBON DIOXIDE 32 mmol/L (22-30); CHLORIDE 94 mmol/L (98-107); GLUCOSE 221 mg/dL (75-110); POTASSIUM 4.2 mmol/L (3.6-5.0); TOTAL PROTEIN 8.6 g/dL (6.3-8.2)
== END 2019-12-03 01:54 | disposition left against medical advice (07) ==
LOC: ER 20:53
DX: R10.9 Unspecified abdominal pain (principal); R11.0 Nausea; R19.7 Diarrhea, unspecified; R10.811 Right upper quadrant abdominal tenderness; R10.813 Right lower quadrant abdominal tenderness; I10 Essential (primary) hypertension; J45.909 Unspecified asthma, uncomplicated; E11.9 Type 2 diabetes mellitus without complications; Z53.20 Procedure and treatment not carried out because of patient's decision for unspecified reasons
CPT/HCPCS: 36415; 80053; 81001; 83690; 85025; 99281

== ENCOUNTER 2019-12-08 13:04 | Emergency (ER) | payer OTHER, MEDICAID ==
[2019-12-08] MEDS ORDERED: ONDANSETRON HCL INJ/PF 4 MG/2 ML SDV IV ONE ×2 (13:42→17:00)
[2019-12-08] MEDS ORDERED: NORMAL SALINE 1000 ML 1,000 ML IV ONE (13:42)
--- NOTE | 2019-12-08 13:42 | ER Document Report ---
ED Medical Screen (RME) - General Chief Complaint: Lower Abdominal Pain Stated Complaint: LOWER ABDOMINAL PAIN/BACK PAIN Time Seen by Provider: 12/08/19 13:38 Primary Care Provider: ARNOL ABEBE PA-C [Primary Care Provider] - Follow up as needed TRAVEL OUTSIDE OF THE [place] IN LAST 30 DAYS: No - HPI Notes: 12/08/19 13:41 Patient is a 54-year-old female with a history of hypertension, diabetes, renal stones, hysterectomy, diverticulosis/diverticulitis who presents complaining of right lower quadrant pain that is been present for the past couple weeks that will radiate up into her back. Patient states that this is similar pain to when she was here last couple times. She has had associated nausea, vomiting, and diarrhea. I have treated and performed a rapid initial assessment of this patient. A comprehensive ED assessment and evaluation of the patient, analysis of test results and completion of medical decision making process will be conducted by additional ED providers. PHYSICAL EXAMINATION: GENERAL: Well-appearing, well-nourished and in no acute distress. A&Ox4. Answers questions appropriately. Abdomen: Limited exam, morbidly obese, difficult to assess abdomen in triage, but does have some tenderness to the lower abdomen on the right side. - Related Data Allergies/Adverse Reactions: levofloxacin [From Levaquin] Adverse Reaction (Intermediate, Verified 12/02/19 21:20) nausea and vomiting simvastatin [From Zocor] Adverse Reaction (Intermediate, Verified 12/02/19 21:20) rash Past Medical History - Past Medical History Cardiac Medical History: Reports: Hx Hypercholesterolemia, Hx Hypertension, Hx Heart Murmur Denies: Hx Coronary Artery Disease, Hx Heart Attack Pulmonary Medical History: Reports: Hx Asthma - MILD Denies: Hx Bronchitis, Hx COPD, Hx Pneumonia Neurological Medical History: Reports: Hx Migraine. Denies: Hx Cerebrovascular Accident, Hx Seizures Endocrine Medical History: Reports: Hx Diabetes Mellitus Type 2 Renal/ Medical History: Reports: Hx Kidney Stones. Denies: Hx Peritoneal Dialysis GI Medical History: Reports: Hx Gastroesophageal Reflux Disease, Hx Ulcer - gastric, Hx Colonoscopy, Hx Endoscopy Musculoskeltal Medical History: Reports Hx Arthritis - JOSIE KNEES/BACK, Reports Hx Musculoskeletal Trauma Psychiatric Medical History: Reports: Hx Depression Traumatic Medical History: Reports: Hx Fractures - wrist, both ankles Past Surgical History: Reports: Hx Cholecystectomy - lap marilyn, Hx Hysterectomy, Hx Orthopedic Surgery - L knee x2. Denies: Hx Pacemaker - Immunizations Immunizations up to date: Yes Hx Diphtheria, Pertussis, Tetanus Vaccination: Yes Physical Exam - Vital signs Vitals: Temp Pulse Resp BP Pulse Ox 98.0 F 94 18 150/86 H 98 12/08/19 13:18 12/08/19 13:18 12/08/19 13:18 12/08/19 13:18 12/08/19 13:18 Course - Vital Signs Vital signs: Temp Pulse Resp BP Pulse Ox 98.0 F 94 18 150/86 H 98 12/08/19 13:18 12/08/19 13:18 12/08/19 13:18 12/08/19 13:18 12/08/19 13:18 Doctor's Discharge - Discharge Referrals: ARNOL ABEBE PA-C [Primary Care Provider] - Follow up as needed
[2019-12-08 14:30] LABS: ABSOLUTE EOSINOPHILS # (AUTO) 0.2 10^3/uL (0.0-0.6); ABSOLUTE LYMPHOCYTES (AUTO) 2.2 10^3/uL (0.5-4.7); ABSOLUTE MONOCYTES (AUTO) 0.3 10^3/uL (0.1-1.4); ABSOLUTE NEUT (AUTO) 3.2 10^3/uL (1.7-8.2); BASOPHILS % (AUTO) 0.7 % (0-2); EOSINOPHILS % (AUTO) 3.1 % (0-6); HEMATOCRIT 37.9 % (36.0-47.0); HEMOGLOBIN 12.9 g/dL (12.0-15.5); LYMPHOCYTES % (AUTO) 37.5 % (13-45); MEAN CORPUSCULAR HEMOGLOBIN 28.2 pg (27.0-33.4); MEAN CORPUSCULAR VOLUME 83 fl (80-97); MONOCYTES % (AUTO) 5.1 % (3-13); PLATELET COUNT 136 10^3/uL (150-450); RED BLOOD COUNT 4.58 10^6/uL (3.72-5.28); RED CELL DISTRIBUTION WIDTH 14.5 % (11.5-14.0); SEGMENTED NEUTROPHILS % (AUTO) 53.6 % (42-78); TOTAL CELLS COUNTED % (AUTO) 100 %
[2019-12-08 14:38] LABS: APPEARANCE,URINE CLEAR; BILIRUBIN,URINE NEGATIVE (NEGATIVE); COLOR,URINE YELLOW; GLUCOSE, URINE >=500 mg/dL (NEGATIVE); KETONES,URINE NEGATIVE (NEGATIVE); PROTEIN,URINE NEGATIVE (NEGATIVE); URINE SPECIFIC GRAVITY 1.017; UROBILINOGEN,URINE NEGATIVE mg/dL (<2.0)
[2019-12-08 15:07] LABS: ALBUMIN 4.5 g/dL (3.5-5.0); ALKALINE PHOSPHATASE 93 U/L (38-126); ANION GAP 11 (5-19); ASPARTATE AMINO TRANSFERASE 48 U/L (14-36); BILIRUBIN,DIRECT 0.4 mg/dL (0.0-0.4); BILIRUBIN,TOTAL 0.6 mg/dL (0.2-1.3); BLOOD UREA NITROGEN 15 mg/dL (7-20); CALCIUM 9.8 mg/dL (8.4-10.2); CARBON DIOXIDE 28 mmol/L (22-30); CHLORIDE 96 mmol/L (98-107); GLUCOSE 304 mg/dL (75-110); POTASSIUM 4.4 mmol/L (3.6-5.0); TOTAL PROTEIN 8.3 g/dL (6.3-8.2)
--- NOTE | 2019-12-08 16:19 | ER Document Report ---
ED GI/ - General Chief Complaint: Abdominal Pain Stated Complaint: LOWER ABDOMINAL PAIN/BACK PAIN Time Seen by Provider: 12/08/19 13:38 Primary Care Provider: ARNOL ABEBE PA-C [PHYSICIAN FOOD HANDLER] - Follow up in 3-5 days Notes: Patient is a 54-year-old female who presents to the emergency department with a chief complaint of right lower quadrant abdominal pain. She has had her pain on and off for the past couple of weeks. At the pain radiates to her back. Admits to nausea, vomiting, and diarrhea. Past medical history includes kidney stones, diabetes, hypertension, diverticulitis, and diverticulitis. Patient has a history of a cholecystectomy and hysterectomy in the past. TRAVEL OUTSIDE OF THE [place] IN LAST 30 DAYS: No - Related Data Allergies/Adverse Reactions: levofloxacin [From Levaquin] Adverse Reaction (Intermediate, Verified 12/08/19 16:00) nausea and vomiting simvastatin [From Zocor] Adverse Reaction (Intermediate, Verified 12/08/19 16:00) rash Past Medical History - Social History Smoking Status: Never Smoker Family History: Arthritis, Malignancy, CAD, CVA, DM, Hyperlipidemia, Hypertension, Reviewed & Not Pertinent Patient has suicidal ideation: No Patient has homicidal ideation: No - Past Medical History Cardiac Medical History: Reports: Hx Hypercholesterolemia, Hx Hypertension, Hx Heart Murmur Denies: Hx Coronary Artery Disease, Hx Heart Attack Pulmonary Medical History: Reports: Hx Asthma - MILD Denies: Hx Bronchitis, Hx COPD, Hx Pneumonia Neurological Medical History: Reports: Hx Migraine. Denies: Hx Cerebrovascular Accident, Hx Seizures Endocrine Medical History: Reports: Hx Diabetes Mellitus Type 2 Renal/ Medical History: Reports: Hx Kidney Stones. Denies: Hx Peritoneal Dialysis GI Medical History: Reports: Hx Gastroesophageal Reflux Disease, Hx Ulcer - gastric, Hx Colonoscopy, Hx Endoscopy Musculoskeletal Medical History: Reports Hx Arthritis - JOSIE KNEES/BACK, Reports Hx Musculoskeletal Trauma Psychiatric Medical History: Reports: Hx Depression Traumatic Medical History: Reports: Hx Fractures - wrist, both ankles Past Surgical History: Reports: Hx Cholecystectomy - lap marilyn, Hx Hysterectomy, Hx Orthopedic Surgery - L knee x2, L SHOULDER. Denies: Hx Pacemaker - Immunizations Immunizations up to date: Yes Hx Diphtheria, Pertussis, Tetanus Vaccination: Yes Hx Pneumococcal Vaccination: 08/19/15 Review of Systems - Review of Systems Notes: REVIEW OF SYSTEMS: CONSTITUTIONAL : Denies recent illness. Denies recent unintentional weight loss. Denies fever, chills, or sweats. EENT: Denies eye, ear, throat, or mouth pain, discharge, or symptoms. Denies nasal or sinus congestion. CARDIOVASCULAR: Denies chest pain. RESPIRATORY: Denies shortness of breath, cough, congestion, difficulty breathing, or wheezing. GASTROINTESTINAL: See HPI. GENITOURINARY: Denies difficulty urinating, burning, blood in urine, urgency or frequency. MUSCULOSKELETAL: Denies neck and back pain. Denies joint pain or swelling. SKIN: Denies rash, itchiness, or lesions HEMATOLOGIC : Denies easy bruising or bleeding. LYMPHATIC: Denies swollen, painful, enlarged glands. NEUROLOGICAL: Denies no numbness or tingling denies weakness. Denies headache. Denies altered mental status. Denies alteration in speech. PSYCHIATRIC: Denies stress, anxiety, alteration in sleep patterns, or depression. All other systems reviewed and negative. Physical Exam - Vital signs Vitals: Temp Pulse Resp BP Pulse Ox 98.0 F 94 18 150/86 H 98 12/08/19 13:18 12/08/19 13:18 12/08/19 13:18 12/08/19 13:18 12/08/19 13:18 - Notes Notes: PHYSICAL EXAMINATION: GENERAL: Appears well, healthy, well-nourished, no acute distress. HEAD: Normocephalic, atraumatic. EYES: PERRL, conjunctiva normal, all extraocular movements intact, sclera nonicteric ENT: Moist mucous membranes. NECK: Supple, no noticeable swelling, redness, rash. Normal range of motion. LUNGS: Equal breath sounds bilaterally and clear to auscultation. No wheezes rales or rhonchi. CARDIOVASCULAR: S1-S2, regular rate, regular rhythm. Radial pulses 2+, normal. ABDOMEN: Normoactive bowel sounds. Soft, tender RLQ, no rebound tenderness, and no masses palpated. EXTREMITIES: Normal strength and range of motion, no pitting or edema. No cyanosis. NEUROLOGICAL: Moves all extremities upon command. Strength 5/5 in all extremit ies. PSYCH: Normal mood, normal affect. SKIN: Warm, dry. No rash, lesions, ulcerations noted. Normal skin turgor. Course - Re-evaluation Re-evalutation: 12/08/19 18:05 Hematology is unremarkable with no leukocytosis or anemia noted. Chemistries show a mild hyponatremia. Her glucose is 304. She received a liter of fluids to help with the findings. AST is only mildly elevated. Urinalysis is unremarkable. CT of the abdomen pelvis showed that the patient has hepatic steatosis. She also has some splenomegaly. I asked her if she had a sore throat or any fever. She denies any of these symptoms. I am not quite sure why she has splenomegaly. Denies pain in the area and she is non-tender in that area. She also does have a fatty pancreas. The radiologist noted Anterolisthesis of L4 and L5. Patient was already aware of this. I discussed the fat around the patien'ts abdominal organs and discussed proper diet and exercise. She will follow up with her PCM in regard to this visit. Follow-up precautions were given. Verbal discharge instructions were given to the patient. They verbalized understanding. They are stable for discharge.Patient states that she feels better after receiving Bentyl. Patient will be sent home with Bentyl and Reglan. Follow-up precautions were given. Verbal discharge instructions were given to the patient. They verbalized understanding. They are stable for discharge. - Vital Signs Vital signs: Temp Pulse Resp BP Pulse Ox 97.7 F 79 18 105/67 98 12/08/19 18:21 12/08/19 18:21 12/08/19 18:21 12/08/19 18:21 12/08/19 18:21 - Laboratory Result Diagrams: 12/08/19 13:52 12/08/19 13:52 Laboratory results interpreted by me: 12/08/19 12/08/19 12/08/19 13:52 13:52 13:52 RDW 14.5 H Plt Count 136 L Sodium 135.2 L Chloride 96 L Glucose 304 H AST 48 H Total Protein 8.3 H Urine Glucose (UA) >=500 H Urine Blood SMALL H Discharge - Discharge Clinical Impression: Splenomegaly, Hepatic steatosis, Fatty pancreas Abdominal pain Qualifiers: Abdominal location: right lower quadrant Qualified Code(s): R10.31 - Right lower quadrant pain Condition: Stable Disposition: HOME, SELF-CARE Instructions: Abdominal Pain ([facility]), Antinausea Medication ([facility]), Low-Fat Diet ([facility]) Additional Instructions: You were seen today in the emergency department for abdominal pain. Your CT scan shows that you have fatty liver disease and a fatty pancreas. Please stick to a low-fat diet. Increase your amount of exercise over time. You also have an enlarged spleen. Please make sure you avoid contact sports, falling, or any other high impact activities. You are being sent home with Bentyl and Reglan, medications to help with your abdominal pain and nausea. Please follow-up with your primary care provider regards to this visit. Prescriptions: Dicyclomine HCl [Bentyl 20 mg Tablet] 20 mg PO QID PRN #20 tablet PRN Reason: Metoclopramide HCl [Reglan 10 mg Tablet] 1 - 2 tab PO ASDIR PRN #25 tablet PRN Reason: Referrals: ARNOL ABEBE PA-C [PHYSICIAN FOOD HANDLER] - Follow up in 3-5 days
[2019-12-08] MEDS ORDERED: KETOROLAC TROMETHAMINE INJ/PF 30 MG/1 ML SDV IV ONE (16:25)
--- NOTE | 2019-12-08 17:15 | RADIOLOGY REPORT (SQ) ---
EXAM DESCRIPTION: CT ABD/PELVIS WITH IV ONLY COMPLETED DATE/TIME: 12/08/2019 4:56 pm REASON FOR STUDY: RLQ abdominal pain COMPARISON: 11/24/2019 TECHNIQUE: CT scan of the abdomen and pelvis performed using helical scanning technique with dynamic intravenous contrast injection. No oral contrast. Images reviewed with lung, soft tissue, and bone windows. Reconstructed coronal and sagittal MPR images reviewed. Delayed images for evaluation of the urinary system also acquired. All images stored on PACS. All CT scanners at this facility use dose modulation, iterative reconstruction, and/or weight based d osing when appropriate to reduce radiation dose to as low as reasonably achievable (ALARA). [facility]: Dose Right [facility]: CareDose [facility]: Dose Right [facility]: Teradose 4D [facility]: Arkivum CONTRAST TYPE AND DOSE: contrast/concentration: Isovue 350.00 mg/ml; Total Contrast Delivered: 100.0 ml; Total Saline Delivered: 72.0 ml RENAL FUNCTION: BUN 15 creatinine 0.84 RADIATION DOSE: CT Rad equipment meets quality standard of care and radiation dose reduction techniq ues were employed. CTDIvol: 21.1 mGy. DLP: 3812 mGy-cm.. LIMITATIONS: None. FINDINGS: LOWER CHEST: No significant findings. No nodules or infiltrates. LIVER: Diffuse mild hypoattenuation with no definable hepatic mass. SPLEEN: Splenomegaly. PANCREAS: Fatty infiltration of the pancreas. No acute findings. GALLBLADDER: Surgically absent. ADRENAL GLANDS: No significant masses or asymmetry. RIGHT KIDNEY AND URETER: No solid masses. No significant calcifications. No hydronephrosis or hyd roureter. LEFT KIDNEY AND URETER: No solid masses. No significant calcifications. No hydronephrosis or hydr oureter. AORTA AND VESSELS: No aneurysm. No dissection. Renal arteries, SMA, celiac without stenosis. RETROPERITONEUM: No retroperitoneal adenopathy, hemorrhage or masses. BOWEL AND PERITONEAL CAVITY: No masses or inflammatory changes. No free fluid or peritoneal masses. APPENDIX: Not identified. PELVIS: No mass. No free fluid. Normal bladder. ABDOMINAL WALL: No masses. No hernias. BONES: Mild grade 1 anterolisthesis of L4 on L5. No osseous lesions. OTHER: No other significant finding. IMPRESSION: Mild hepatic steatosis. Splenomegaly. Fatty infiltration of the pancreas. Anterolisth esis of L4 on L5. TECHNICAL DOCUMENTATION: JOB ID: [id number] Quality ID # [id number]: Final reports with documentation of one or more dose reduction techniques (e.g., Au tomated exposure control, adjustment of the mA and/or kV according to patient size, use of iterative reconstruction technique) 2010 [employer]- All Rights Reserved Reading location - IP/workstation name: [email or web address]
[2019-12-08] MEDS ORDERED: DICYCLOMINE HCL 20 MG TABLET PO ONE (17:21)
[2019-12-08 18:23] VITALS: BP 105/67
== END 2019-12-08 18:21 | disposition home or self-care (01) ==
LOC: ER 13:04
DX: R16.1 Splenomegaly, not elsewhere classified (principal); K86.89 Other specified diseases of pancreas; K76.0 Fatty (change of) liver, not elsewhere classified; M54.9 Dorsalgia, unspecified; R10.30 Lower abdominal pain, unspecified; R10.31 Right lower quadrant pain; R11.2 Nausea with vomiting, unspecified; R19.7 Diarrhea, unspecified; E11.9 Type 2 diabetes mellitus without complications; I10 Essential (primary) hypertension; Z87.442 Personal history of urinary calculi; Z90.49 Acquired absence of other specified parts of digestive tract; Z90.710 Acquired absence of both cervix and uterus
CPT/HCPCS: 99284; 96361; 96374; 96375; 36415; 83690; 85025; 80053; 81001; 74177; J3490; J1885; J2405; J7030

== ENCOUNTER 2019-12-10 22:02 | Emergency (ER) | payer OTHER, MEDICAID ==
[2019-12-10] MEDS ORDERED: IPRATROPIUM/ALBUTEROL 0.5-2.5 MG/3 ML AMPUL NEB ONE (22:39)
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
[2019-12-10 23:57] LABS: ABSOLUTE BASOPHILS # (AUTO) 0.1 10^3/uL (0.0-0.2); ABSOLUTE EOSINOPHILS # (AUTO) 0.2 10^3/uL (0.0-0.6); ABSOLUTE LYMPHOCYTES (AUTO) 2.2 10^3/uL (0.5-4.7); ABSOLUTE MONOCYTES (AUTO) 0.4 10^3/uL (0.1-1.4); ABSOLUTE NEUT (AUTO) 5.2 10^3/uL (1.7-8.2); BASOPHILS % (AUTO) 0.8 % (0-2); EOSINOPHILS % (AUTO) 2.4 % (0-6); HEMATOCRIT 38.8 % (36.0-47.0); HEMOGLOBIN 13.1 g/dL (12.0-15.5); LYMPHOCYTES % (AUTO) 27.7 % (13-45); MEAN CORPUSCULAR HGB CONC 33.7 g/dL (32.0-36.0); MEAN CORPUSCULAR VOLUME 83 fl (80-97); MONOCYTES % (AUTO) 4.9 % (3-13); PLATELET COUNT 167 10^3/uL (150-450); RED BLOOD COUNT 4.67 10^6/uL (3.72-5.28); RED CELL DISTRIBUTION WIDTH 14.6 % (11.5-14.0); SEGMENTED NEUTROPHILS % (AUTO) 64.2 % (42-78); TOTAL CELLS COUNTED % (AUTO) 100 %; WHITE BLOOD COUNT 8.1 10^3/uL (4.0-10.5)
[2019-12-11 00:05] LABS: ALBUMIN 4.5 g/dL (3.5-5.0); ALKALINE PHOSPHATASE 92 U/L (38-126); ANION GAP 11 (5-19); ASPARTATE AMINO TRANSFERASE 69 U/L (14-36); BILIRUBIN,TOTAL 0.6 mg/dL (0.2-1.3); BLOOD UREA NITROGEN 18 mg/dL (7-20); CALCIUM 9.9 mg/dL (8.4-10.2); CARBON DIOXIDE 26 mmol/L (22-30); CHLORIDE 98 mmol/L (98-107); GLUCOSE 206 mg/dL (75-110); POTASSIUM 4.3 mmol/L (3.6-5.0)
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
[2019-12-11 02:04] VITALS: BP 118/81
--- NOTE | 2019-12-11 07:55 | EKG REPORT ---
SEVERITY:- BORDERLINE ECG - SINUS RHYTHM BORDERLINE INFERIOR Q WAVES : Confirmed by: Jason Jarquin MD 11-Dec-2019 07:54:58
== END 2019-12-11 02:05 | disposition home or self-care (01) ==
LOC: ER 22:02
DX: T59.811A Toxic effect of smoke, accidental (unintentional), initial encounter (principal); J70.5 Respiratory conditions due to smoke inhalation; R06.02 Shortness of breath; R09.89 Other specified symptoms and signs involving the circulatory and respiratory systems; Y92.009 Unspecified place in unspecified non-institutional (private) residence as the place of occurrence of the external cause; J45.909 Unspecified asthma, uncomplicated; R06.01 Orthopnea; I10 Essential (primary) hypertension; E11.9 Type 2 diabetes mellitus without complications
CPT/HCPCS: 93005; 94640; 99285; 36415; 82375; 85025; 80053; 84484; 71046; 93010; J7620

== ENCOUNTER 2020-02-04 15:42 | Emergency (ER) | payer OTHER, MEDICAID ==
--- NOTE | 2020-02-04 16:11 | ER Document Report ---
ED Medical Screen (RME) - General Chief Complaint: Chest Pain Stated Complaint: CHEST PAIN Time Seen by Provider: 02/04/20 16:06 Primary Care Provider: LETTY JOY FNP-C [Primary Care Provider] - Follow up as needed Mode of Arrival: Ambulatory Information source: Patient Notes: 54-year-old female presented to ED for complaint of chest pain since yesterday. She does have a history of high blood pressure high cholesterol and diabetes. He states he feels like there is a flutter in her chest right now. She states she also feels pressure in her chest. She states she has been examined for chest pain along time ago but nothing recent. She states the chest pain started yesterday but the flutter is been going on since Sunday. She also has diaphoresis and a headache I have greeted and performed a rapid initial assessment of this patient. A comprehensive ED assessment and evaluation of the patient, analysis of test results and completion of medical decision making process will be conducted by an additional ED providers. TRAVEL OUTSIDE OF THE [place] IN LAST 30 DAYS: No - Related Data Allergies/Adverse Reactions: levofloxacin [From Levaquin] Adverse Reaction (Intermediate, Verified 12/10/19 22:37) nausea and vomiting simvastatin [From Zocor] Adverse Reaction (Intermediate, Verified 12/10/19 22:37) rash Past Medical History - Past Medical History Cardiac Medical History: Reports: Hx Hypercholesterolemia, Hx Hypertension, Hx Heart Murmur Denies: Hx Coronary Artery Disease, Hx Heart Attack Pulmonary Medical History: Reports: Hx Asthma - MILD Denies: Hx Bronchitis, Hx COPD, Hx Pneumonia Neurological Medical History: Reports: Hx Migraine. Denies: Hx Cerebrovascular Accident, Hx Seizures Endocrine Medical History: Reports: Hx Diabetes Mellitus Type 2 Renal/ Medical History: Reports: Hx Kidney Stones. Denies: Hx Peritoneal Dialysis GI Medical History: Reports: Hx Gastroesophageal Reflux Disease, Hx Ulcer - gastric, Hx Colonoscopy, Hx Endoscopy Musculoskeltal Medical History: Reports Hx Arthritis - JOSIE KNEES/BACK, Reports Hx Musculoskeletal Trauma Psychiatric Medical History: Reports: Hx Depression Traumatic Medical History: Reports: Hx Fractures - wrist, both ankles Past Surgical History: Reports: Hx Cholecystectomy - lap marilyn, Hx Hysterectomy, Hx Orthopedic Surgery - L knee x2, L SHOULDER. Denies: Hx Pacemaker - Immunizations Immunizations up to date: Yes Hx Diphtheria, Pertussis, Tetanus Vaccination: Yes Doctor's Discharge - Discharge Referrals: LETTY JOY FNP-C [Primary Care Provider] - Follow up as needed
[2020-02-04] MEDS ORDERED: ASPIRIN 81 MG TABLET, CHEWABLE PO ONE (16:12)
--- NOTE | 2020-02-04 16:40 | RADIOLOGY REPORT (SQ) ---
EXAM DESCRIPTION: CHEST 2 VIEWS COMPLETED DATE/TIME: 02/04/2020 4:26 pm REASON FOR STUDY: Chest pain COMPARISON: 12/10/2019 EXAM PARAMETERS: NUMBER OF VIEWS: two views TECHNIQUE: Digital Frontal and Lateral radiographic views of the chest acquired. RADIATION DOSE: NA LIMITATIONS: none FINDINGS: LUNGS AND PLEURA: No opacities, masses or pneumothorax. No pleural effusion. MEDIASTINUM AND HILAR STRUCTURES: No masses or contour abnormalities. HEART AND VASCULAR STRUCTURES: Heart normal size. No evidence for failure. BONES: No acute findings. HARDWARE: None in the chest. OTHER: No other significant finding. IMPRESSION: NO ACUTE RADIOGRAPHIC FINDING IN THE CHEST. TECHNICAL DOCUMENTATION: JOB ID: [id number] 2010 [employer]- All Rights Reserved Reading location - IP/workstation name: [email or web address]
[2020-02-04 16:52] LABS: ABSOLUTE BASOPHILS # (AUTO) 0.1 10^3/uL (0.0-0.2); ABSOLUTE EOSINOPHILS # (AUTO) 0.2 10^3/uL (0.0-0.6); ABSOLUTE LYMPHOCYTES (AUTO) 3.9 10^3/uL (0.5-4.7); ABSOLUTE MONOCYTES (AUTO) 0.6 10^3/uL (0.1-1.4); ABSOLUTE NEUT (AUTO) 5.4 10^3/uL (1.7-8.2); BASOPHILS % (AUTO) 0.8 % (0-2); EOSINOPHILS % (AUTO) 2.1 % (0-6); HEMATOCRIT 40.8 % (36.0-47.0); HEMOGLOBIN 13.6 g/dL (12.0-15.5); LYMPHOCYTES % (AUTO) 38.2 % (13-45); MEAN CORPUSCULAR HEMOGLOBIN 27.4 pg (27.0-33.4); MEAN CORPUSCULAR HGB CONC 33.4 g/dL (32.0-36.0); MEAN CORPUSCULAR VOLUME 82 fl (80-97); MONOCYTES % (AUTO) 5.5 % (3-13); PLATELET COUNT 173 10^3/uL (150-450); RED BLOOD COUNT 4.97 10^6/uL (3.72-5.28); RED CELL DISTRIBUTION WIDTH 15.5 % (11.5-14.0); SEGMENTED NEUTROPHILS % (AUTO) 53.4 % (42-78); TOTAL CELLS COUNTED % (AUTO) 100 %; WHITE BLOOD COUNT 10.1 10^3/uL (4.0-10.5)
[2020-02-04] MEDS ORDERED: MAGNESIUM SULFATE/D5W 1 GM/100 ML RTUPB IV ONE (17:00)
--- NOTE | 2020-02-04 17:02 | ER Document Report ---
ED General - General Chief Complaint: Chest Pain Stated Complaint: CHEST PAIN Time Seen by Provider: 02/04/20 16:06 Primary Care Provider: LETTY JOY FNP-C [Primary Care Provider] - Follow up as needed IVETTE PEREZ MD [ACTIVE STAFF] - Follow up as needed Mode of Arrival: Ambulatory Notes: 54-year-old female with a history of diabetes morbid obesity and hypertension presents with palpitations. Describes it as pressure intermittent "like a fluttering in my chest" occurring random x1 today for 7 days. Not with activity and with position. No shortness of breath. No leg swelling. No known history of sleep apnea COPD or CHF. Takes lisinopril antidepressant and Lantus but no other meds. No excessive caffeine intake or stimulant intake. No cough no fever. The patient has NO history of travel to high-risk locations for COVID-19 or contact with persons under investigation for or confirmed positive for COVID- 19. TRAVEL OUTSIDE OF THE [place] IN LAST 30 DAYS: No - Related Data Allergies/Adverse Reactions: levofloxacin [From Levaquin] Adverse Reaction (Intermediate, Verified 02/04/20 16:08) nausea and vomiting simvastatin [From Zocor] Adverse Reaction (Intermediate, Verified 02/04/20 16:08) rash Home Medications: lisinopril. hctz. lantus. protonix. janumet. cymbalta. percocet Past Medical History - General Information source: Patient - Social History Smoking Status: Never Smoker Chew tobacco use (# tins/day): No Frequency of alcohol use: None Drug Abuse: None Family History: Arthritis, Malignancy, CAD, CVA, DM, Hyperlipidemia, Hypertension, Reviewed & Not Pertinent Patient has suicidal ideation: No Patient has homicidal ideation: No - Past Medical History Cardiac Medical History: Reports: Hx Hypercholesterolemia, Hx Hypertension, Hx Heart Murmur Denies: Hx Coronary Artery Disease, Hx Heart Attack Pulmonary Medical History: Reports: Hx Asthma - MILD Denies: Hx Bronchitis, Hx COPD, Hx Pneumonia Neurological Medical History: Reports: Hx Migraine. Denies: Hx Cerebrovascular Accident, Hx Seizures Endocrine Medical History: Reports: Hx Diabetes Mellitus Type 2 Renal/ Medical History: Reports: Hx Kidney Stones. Denies: Hx Peritoneal Dialysis GI Medical History: Reports: Hx Gastroesophageal Reflux Disease, Hx Ulcer - gastric, Hx Colonoscopy, Hx Endoscopy Musculoskeletal Medical History: Reports Hx Arthritis - JOSIE KNEES/BACK, Reports Hx Musculoskeletal Trauma Psychiatric Medical History: Reports: Hx Depression Traumatic Medical History: Reports: Hx Fractures - wrist, both ankles Past Surgical History: Reports: Hx Cholecystectomy - lap marilyn, Hx Hysterectomy, Hx Orthopedic Surgery - L knee x2, L SHOULDER. Denies: Hx Pacemaker - Immunizations Immunizations up to date: Yes Hx Diphtheria, Pertussis, Tetanus Vaccination: Yes Hx Pneumococcal Vaccination: 08/19/15 Review of Systems - Review of Systems Notes: REVIEW OF SYSTEMS GEN: Denies fever, chills, weight loss ENT: Denies sore throat, nasal discharge, ear pain EYES: Denies blurry vision, eye pain, discharge CV: See HPI RESP: Denies cough, shortness of breath, wheezing GI: Denies abdominal pain, nausea, vomiting, diarrhea MSK: Denies joint pain/swelling, edema, SKIN: Denies rash, skin lesions LYMPH: Denies swollen glands/lymph nodes NEURO: Denies headache, focal weakness or numbness, dizziness PSYCH: Denies depression, suicidal or homicidal ideation PHYSICAL EXAMINATION General: Obese. No acute distress, well-nourished Head: Atraumatic, normocephalic ENT: Mouth normal, oropharynx moist, no exudates or tonsillar enlargement Eyes: Conjunctiva normal, pupils equal, lids normal Neck: No JVD, supple, no guarding CVS: Normal rate, regular rhythm, no murmurs Resp: No resp distress, equal and normal breath sounds bilaterally GI: Nondistended, soft, no tenderness to palpation, no rebound or guarding Ext: No deformities, no edema, normal range of motion in upper and lower ext Back: No CVA or midline TTP Skin: No rash, warm Lymphatic: No lymphadeopathy noted Neuro: Awake, alert. Face symmetric. GCS 15. Physical Exam - Vital signs Vitals: Temp Pulse Resp BP Pulse Ox 98.4 F 99 20 181/79 H 98 02/04/20 16:08 02/04/20 16:08 02/04/20 16:08 02/04/20 16:08 02/04/20 16:08 Course - Re-evaluation Re-evalutation: 02/04/20 17:02 Patient presents with chest discomfort palpitations more likely from rhythm and ischemia given her EKG. She has risk factors for electrolyte abnormalities we will check this. Her EKG is nonischemic but will check troponin. She says she had a negative stress test in last 3 years. 02/04/20 21:03 Labs normal no further palpitations or ectopy Recommended oral magnesium avoidance of caffeine and referred to cardiology I have discussed with the patient there likely diagnosis, aftercare plan, follow- up plans and my usual and customary return precautions. They verbalized understanding of this. - Vital Signs Vital signs: Temp Pulse Resp BP Pulse Ox 98.0 F 86 13 126/80 H 99 02/04/20 18:31 20 18:31 02/04/20 18:31 02/04/20 18:31 02/04/20 18:31 - Laboratory Result Diagrams: 02/04/20 16:30 02/04/20 16:30 Laboratory results interpreted by me: 02/04/20 02/04/20 16:30 16:30 RDW 15.5 H Chloride 97 L Carbon Dioxide 31 H Glucose 168 H AST 57 H ALT 54 H - Diagnostic Test Radiology reviewed: Image reviewed, Reports reviewed - EKG Interpretation by Me EKG shows normal: Sinus rhythm Rate: Normal Rhythm: NSR - Second EKG: Occasional PVCs Discharge - Discharge Clinical Impression: Premature ventricular contraction Condition: Good Disposition: HOME, SELF-CARE Instructions: Chest Pain of Unclear Cause ([facility]), Palpitations (Irregular or Rapid Heartrate) ([facility]) Additional Instructions: As we discussed there is evidence of extra heartbeats, and I am concerned that you probably also have sleep apnea. I need you to follow-up with your primary care and get a sleep study and going to refer you to cardiology for mobile monitoring. Referrals: LETTY JOY FNP-C [Primary Care Provider] - Follow up as needed IVETTE PEREZ MD [ACTIVE STAFF] - Follow up as needed
[2020-02-04 17:21] LABS: ALBUMIN 4.4 g/dL (3.5-5.0); ALKALINE PHOSPHATASE 113 U/L (38-126); ANION GAP 9 (5-19); ASPARTATE AMINO TRANSFERASE 57 U/L (14-36); BILIRUBIN,DIRECT 0.3 mg/dL (0.0-0.4); BILIRUBIN,TOTAL 0.5 mg/dL (0.2-1.3); BLOOD UREA NITROGEN 17 mg/dL (7-20); CALCIUM 9.5 mg/dL (8.4-10.2); CARBON DIOXIDE 31 mmol/L (22-30); CHLORIDE 97 mmol/L (98-107); GLUCOSE 168 mg/dL (75-110); POTASSIUM 4.1 mmol/L (3.6-5.0); TOTAL PROTEIN 8.1 g/dL (6.3-8.2)
[2020-02-04 18:33] VITALS: BP 126/80
--- NOTE | 2020-02-04 20:03 | EKG REPORT ---
SEVERITY:- NORMAL ECG - SINUS RHYTHM : Confirmed by: Summer Finney MD 04-Feb-2020 20:03:00
== END 2020-02-04 18:31 | disposition home or self-care (01) ==
LOC: ER 15:42
DX: I49.3 Ventricular premature depolarization (principal); J45.909 Unspecified asthma, uncomplicated; I10 Essential (primary) hypertension; E11.9 Type 2 diabetes mellitus without complications; F32.9 Major depressive disorder, single episode, unspecified; Z79.899 Other long term (current) drug therapy; Z79.4 Long term (current) use of insulin; Z79.891 Long term (current) use of opiate analgesic
CPT/HCPCS: 93005; 99285; 96365; 36415; 85025; 80053; 84484; 71046; 93010; J3475

== ENCOUNTER → 2020-05-25 | Day surgery (SDC) | payer OTHER, MEDICAID ==
[~2020-05-25] MED LIST changes: -CEFAZOLIN 2 GM/D5W RTU 2 GM/50 ML RTUPB IV ONE; -CEFAZOLIN 2 GM/D5W RTU 2 GM/50 ML RTUPB IV PRN; -DEXAMETHASONE SOD PHOSPHATE INJ 4 MG/1 ML VIAL ONE; -EPHEDRINE SULFATE INJ 50 MG/1 ML AMPULE ONE; -FENTANYL CITRATE INJ/PF 250 MCG/5 ML AMPULE ONE; +LIDOCAINE 2% INJ (20 MG/ML) 20 ML MDV ONE; -MIDAZOLAM 2 MG/2 ML INJ ONE; -ONDANSETRON HCL INJ/PF 4 MG/2 ML SDV ONE; -PROPOFOL INJ 200 MG/20 ML VIAL IV ONE
--- NOTE | 2020-05-27 18:10 | WOMENS IMAGING REPORT ---
EXAM DESCRIPTION: U/S BREAST BX IMAGES COMPLETED DATE/TIME: 05/27/2020 1:55 pm REASON FOR STUDY: LOCALIZED NODES R59.0 LOCALIZED ENLARGED LYMPH NODES COMPARISON: None. TECHNIQUE: The procedure was discussed with the patient and the patient agreed to proceed. The patient was scanned and the enlarged lymph nodes in the axillary tail left breast were localized. This correlates with the area of concern on prior imaging studies. This area was targeted for ultra sound-guided core biopsy. After sterile skin prep and 4 mL local lidocaine 1 % skin and deep tissue anesthesia, a 14 gauge coax ial core biopsy needle was used to obtain several cores of tissue from the lesion. Under ultrasound guidance, a Ribbon clip was placed in the areas sampled. There were no immediate post-procedure comp lications. MAMMOGRAM: Post-procedure two view mammogram was not performed Pathology yields a diagnosis of reactive lymphoid hyperplasia. Negative for malignancy Pathology is concordant. LIMITATIONS: None. FINDINGS: Ultrasound guided breast biopsy as described above. POST PROCEDURE MAMMOGRAMS FOR MARKER PLACEMENT: No IMPRESSION: ULTRASOUND-GUIDED CORE BIOPSY OF THE LEFT AXILLARY LYMPH NODES YIELDS A BENIGN DIAGNOSIS BI-RADS 2 COMMENT: CONTINUE BILATERAL SCREENING MAMMOGRAPHY IN APRIL 2021 ITEM COMMUNICATION: RESULTS DISCUSSED WITH THE PATIENT, 1800 HOURS 05/27/2020 Patient medication list reviewed: Yes- Quality ID# [id number]:Eligible professional attests to documenting i n the medical record they obtained, updated, or reviewed the patient's current medications. TECHNICAL DOCUMENTATION: JOB ID: [id number] 2010 [employer]- All Rights Reserved Reading location - IP/workstation name: [id number]
== END ==
LOC: RAD 08:45 → EDSTATUS 12:57
PROVIDERS: ATTEND Physician Assistant
DX: R59.0 Localized enlarged lymph nodes (principal)
CPT/HCPCS: 88342 ×2; 88341 ×2; 88305 ×2; 19083; J3490

== ENCOUNTER 2020-06-03 16:45 | Emergency (ER) | payer OTHER, MEDICAID ==
[2020-06-03 17:03] VITALS: BP 118/80
--- NOTE | 2020-06-03 18:26 | EKG REPORT ---
SEVERITY:- NORMAL ECG - SINUS RHYTHM : Confirmed by: Jaspreet Lord MD 03-Jun-2020 18:26:04
== END 2020-06-03 17:58 | disposition left against medical advice (07) ==
LOC: ER 16:45
DX: Z53.21 Procedure and treatment not carried out due to patient leaving prior to being seen by health care provider (principal)
CPT/HCPCS: 93005; 93010

== ENCOUNTER 2020-09-14 17:15 | Emergency (ER) | payer OTHER, MEDICAID ==
[2020-09-14] MEDS ORDERED: KETOROLAC TROMETHAMINE 60 MG/2 ML SDV IM ONE (17:41)
--- NOTE | 2020-09-14 17:41 | ER Document Report ---
ED Fall - General Chief Complaint: Fall Stated Complaint: LEG NUMBNESS, FALL/ ANKLE PAIN, Time Seen by Provider: 09/14/20 17:33 Primary Care Provider: FRANCISCO AVERY PA-C [Primary Care Provider] - Follow up as needed BARBARA DONAHUE DO [ACTIVE STAFF] - Follow up tomorrow Mode of Arrival: Wheelchair Information source: Patient Notes: 55-year-old female presented to ED for complaint of pain to both knees left ankle and right hand and wrist. She states she was walking out of the house when she fell landing on the grass and sidewalk. She has abrasions to both knees and the right hand she also has pain to the left ankle with pain with any movement to the left ankle. She states she heard some cracks and pops in the left ankle. She states she has fractured this ankle in the past. Constitutional: Negative for fever. HENT: Negative for sore throat. Eyes: Negative for visual changes. Cardiovascular: Negative for chest pain. Respiratory: Negative for shortness of breath. Gastrointestinal: Negative for abdominal pain, vomiting or diarrhea. Genitourinary: Negative for dysuria. Musculoskeletal: Negative for back pain. Skin: Negative for rash. Neurological: Negative for headaches, weakness or numbness. 10 point ROS negative except as marked above and in HPI. PHYSICAL EXAMINATION: GENERAL: Well-appearing, well-nourished and in no acute distress. HEAD: Atraumatic, normocephalic. EYES: Pupils equal round extraocular movements intact, conjunctiva are normal. ENT: Nares patent NECK: Normal range of motion LUNGS: No respiratory distress Musculoskeletal: Tenderness to palpation to both knees left ankle and right hand and wrist NEUROLOGICAL: Normal speech, normal gait. PSYCH: Normal mood, normal affect. SKIN: Abrasions to both knee and right hand, right middle finger and right thumb TRAVEL OUTSIDE OF THE [place] IN LAST 30 DAYS: No - HPI Occurred: This morning Where: Home, Outdoors Context: Fell from standing Associated symptoms: None Location of injury/pain: Ankle - l, Hand - r, Knee - x2, Wrist - r Quality of pain: Sharp Severity: Moderate Pain Level: 4 - Related data Allergies/Adverse Reactions: levofloxacin [From Levaquin] Adverse Reaction (Intermediate, Verified 09/14/20 20:18) nausea and vomiting simvastatin [From Zocor] Adverse Reaction (Intermediate, Verified 09/14/20 20:18) rash Past Medical History - General Information source: Patient - Social History Smoking Status: Never Smoker Frequency of alcohol use: None Drug Abuse: None Lives with: Family Family History: Arthritis, Malignancy, CAD, CVA, DM, Hyperlipidemia, Hypertension, Reviewed & Not Pertinent Patient has suicidal ideation: No Patient has homicidal ideation: No - Past Medical History Cardiac Medical History: Reports: Hx Hypercholesterolemia, Hx Hypertension, Hx Heart Murmur Pulmonary Medical History: Reports: Hx Asthma - MILD EENT Medical History: Reports: None Neurological Medical History: Reports: Hx Migraine Endocrine Medical History: Reports: Hx Diabetes Mellitus Type 2 Renal/ Medical History: Reports: Hx Kidney Stones, Other Malignancy Medical History: Reports: None - Metria cyst GI Medical History: Reports: Hx Gastroesophageal Reflux Disease, Hx Ulcer - gastric, Hx Colonoscopy, Hx Endoscopy Musculoskeletal Medical History: Reports Hx Arthritis - JOSIE KNEES/BACK, Reports Hx Musculoskeletal Deformity, Reports Hx Musculoskeletal Trauma Psychiatric Medical History: Reports: Hx Depression Traumatic Medical History: Reports: Hx Fractures - right wrist, both ankles Infectious Medical History: Reports: None Past Surgical History: Reports: Hx Cholecystectomy - lap marilyn, Hx Hysterectomy, Hx Orthopedic Surgery - L knee x2, L SHOULDER. Denies: Hx Pacemaker - Immunizations Immunizations up to date: Yes Hx Diphtheria, Pertussis, Tetanus Vaccination: Yes - 2017 Hx Pneumococcal Vaccination: 08/19/15 Physical Exam - Vital signs Vitals: Temp Pulse Resp BP Pulse Ox 98.0 F 88 16 136/76 H 100 09/14/20 17:21 09/14/20 17:21 09/14/20 17:21 09/14/20 17:21 09/14/20 17:21 Course - Re-evaluation Re-evalutation: 09/14/20 21:17 Discussed x-rays with Dr. Donahue. Patient did have a fibular head fracture on the right knee and no other acute injuries noted. She did have tricompartmental arthritis on the left knee. All abrasions were cleaned well with surgical scrub rinsed with saline bacitracin Telfa and gauze applied to them. Patient was given instructions on elevation ice for her pain. She is chronic pain m anagement and she does have chronic pain medicine at home she was given a dose of Toradol in the emergency room. She states she cannot take anti- inflammatories by mouth due to having a history of ulcers but she did get the Toradol IM. Patient did states she would call the promotions specialist tomorrow for follow-up as instructed. - Vital Signs Vital signs: Temp Pulse Resp BP Pulse Ox 98.3 F 88 16 152/88 H 98 09/14/20 20:23 09/14/20 20:23 09/14/20 20:23 09/14/20 20:23 09/14/20 20:23 - Diagnostic Test Radiology reviewed: Image reviewed, Reports reviewed Procedures - Immobilization Right Knee Time completed: 20:16 Immobilizer type: Knee immobilizer Performed by: PCT Post-Proc Neuro Vasc Exam: Normal Alignment checked and good: No Left Ankle Time completed: 20:16 Pre-Proc Neuro Vasc Exam: Normal Immobilizer type: Antonio wrap, Ankle stirrup Performed by: PCT Post-Proc Neuro Vasc Exam: Normal Alignment checked and good: Yes Notes: 09/14/20 21:16 Patient already has crutches Discharge - Discharge Clinical Impression: Abrasion of knee, bilateral Closed right fibular fracture Qualifiers: Encounter type: initial encounter Fibula location: proximal Fracture morpho logy: unspecified fracture morphology Qualified Code(s): S82.831A - Other fracture of upper and lower end of right fibula, initial encounter for closed fracture Left ankle sprain Qualifiers: Encounter type: initial encounter Involved ligament of ankle: unspecified ligament Qualified Code(s): S93.402A - Sprain of unspecified ligament of left ankle, initial encounter Abrasion of right hand and fingers Qualifiers: Encounter type: initial encounter Qualified Code(s): S60.511A - Abrasion of right hand, initial encounter Condition: Stable Disposition: HOME, SELF-CARE Additional Instructions: CONTUSION: Your injury has resulted in a contusion -- a crushing of the deep tissues. No injury to important structures was detected during the physician's exam. Contusions vary in the amount of pain they cause, and in the length of time required for healing. Typically, the area will become bruised, and will remain painful to touch for two or three weeks. However, most patients are back to working and playing within a few days. After the initial period of rest and cold-packs, your symptoms (together with the doctor's recommendations) will determine how rapidly you can get back to full activity. Usually this means "do what feels okay, but don't do things that hurt." If re-examination was recommended, it's important to follow up as instructed. Call the doctor or return any time if pain increases, if swelling becomes severe, if you develop numbness or weakness in an injured extremity, or if any other alarming symptoms occur. ABRASIONS: An abrasion is a scraping injury of the skin. Some scarring may result. The seriousness of an abrasion is not always obvious at first. Hidden tissue damage may be present and infection may occur despite proper care. Complete healing may take from ten days to as long as a month. The healing time depends on the depth of the abrasion, and on the amount of crushing of underlying tissues from the injury. Keep the wound and dressing clean. Do not shower or bathe the area until okayed by the doctor. If the dressing gets wet, remove it and blot the wound dry, then reapply a clean dressing. Dressings should be changed every day. Sunscreen should be used for six months after the skin is healed. If any signs of infection occur (swelling, redness, increasing tenderness, red streaks, profuse purulent drainage from the abrasion, tender lumps in the armpit or groin above the abrasion, or fever), see the doctor immediately. Fracture of Fibula head You have a fracture at the fibula head, the smaller bone in the lower leg. The fracture is at the knee and of the bone. This fracture will need to be f ollowed up with the promotions specialist Initially, the extremity should be kept elevated, with ice packs applied frequently. These keep your knee immobilizer on anytime you put any weight on t his foot Healing of this fracture takes about four to eight weeks. Younger patients heal more quickly. An X-ray is usually required during healing to check for complications and to assess healing. Call the doctor or return at once if there is severe swelling, increasing pain, or numbness in the foot. SPRAINED ANKLE: Your sprained ankle results from stretching or tearing of the ligaments which support the ankle. This usually results from twisting the foot inward and under. The ligaments will require time and protection in order to heal properly. Many ankle sprains are quite disabling, and should be taken seriously. The usual treatment for an ankle sprain is cold packs; protection with tape, splints, or wraps; elevation; and staying off the ankle for at least a day. As the ankle improves, you can walk IF it's not painful to bear weight. Sports are best postponed until healing is complete. More serious sprains usually require strengthening exercises after early healing. Your physician has assessed the seriousness of the ligament injury to your ankle. However, the treatment may change, depending on how your ankle progresses. If further exams were recommended, it is important that you follow through. Call the doctor if your foot becomes numb, painful, or severely swollen. ANKLE STIRRUP SPLINT: You are to use an ankle brace called a stirrup splint. This type of brace allows you to place greater stresses on the ankle without risk of re-injury, and is often used for more severe ankle injuries such as avulsion fractures and l igament ruptures. The splint can be worn over a sock or tape. For proper support, wear the splint with a shoe over it. It's important that the splint fit properly. Adjust the heel tension, if needed. If your splint has air bladders, peel back the bottom of each air bladder, then move the Velcro attachment of the heel strap up or down. Air bladder pressure can be adjusted by pulling up the valve at the top, threading the air tube down into the main bladder, then blowing air into the bladder or squeezing it out. The two sides of the stirrup can be moved forward or back on your ankle by changing the attachment of the main straps. If you are unable to use the ankle comfortably in the splint, return for re-evaluation. ANTONIO WRAP: A compression dressing (antonio wrap) has been placed. This helps hold the area still. It limits swelling and internal bleeding. The wrap should be comfortably snug -- not tight. You should feel a sense of pressure, but not severe pain under the wrap. Unless the physician tells you otherwise, you can adjust the wrap for comfort. If the wrap causes symptoms suggesting it's too tight -- uncomfortable pressure, swelling or discoloration beyond the wrap, numbness, or severe pain -- you must loosen the wrap. If these symptoms don't resolve promptly, return for re-evaluation. KNEE IMMOBILIZING SPLINT: The knee immobilizing splint will protect the injury while healing begins. This type of splint does not allow the knee to bend at all. No running or sports will be possible. If the splint allows painfree walking, it's giving adequate protection. If there is still significant pain, crutches may be needed as well. Don't do anything that hurts. Adjusted the splint, if necessary. The stiffeners on the sides are attached with Velcro, so they can be easily moved to adjust for thigh and calf size. If you need help with these adjustments, come back. You will lose muscle strength in the thigh while using this splint. The doctor will advise you if it's safe to do isometric knee exercises while you use it. USE OF CRUTCHES: The doctor has recommended that you not bear weight at this time. You will need to use crutches. Adjust the crutches so the tops come to about two inches under the armpit while you are standing upright. Use your hands -- not your armpits -- to support your weight. To get into a chair, support yourself with one crutch on the injured side. Hold the chair with the other hand, then lower yourself while putting all your weight on the good leg. Going up stairs is `good leg up, step up, then bring up crutches and bad leg.' Down stairs is `bad leg and crutches down, then bring good leg down.' If you develop numbness or swelling in an arm or hand, you are using the crutches incorrectly. Return if you are having any problems with the crutches. ICE & ELEVATION: Apply ice packs frequently against the painful area. Many different schedules are recommended, such as "20 minutes on, 20 minutes off" or "one hour ice, two hours rest." If you need to work, you may need to go longer between ice treatments. You should plan to have the area ice packed AT LEAST one-fourth of the time. The ice should be applied over the wrap, tape, or splint, or over a layer of cloth -- not directly against the skin. Some ice bags have a built-in cloth and can be put directly on the skin. Your injured part should be elevated as much as possible over the next 48 hours. Try to keep the injury above the level of the heart. Avoid use of the injured area. Elevation and rest will decrease the swelling. USE OF TYLENOL (ACETAMINOPHEN): Acetaminophen may be taken for pain relief or fever control. It's much safer than aspirin, offering a wider range of "safe" dosages. It is safe during . Some brand names are Tylenol, Panadol, Datril, Anacin 3, Tempra, and Liquiprin. Acetaminophen can be repeated every four hours. The following are maximum recommended dosages: WEIGHT Dose Drops Elixir Chewable(80mg) (LBS.) drprs=droppers tsp=teaspoon 6 40 mg 0.4 ml (1/2) 6-11 80 mg 0.8 ml (full) tsp 1 tab 12-16 120 mg 1 1/2 drprs 3/4 tsp 1 1/2 tabs 17-23 160 mg 2 drprs 1 tsp 2 tabs 24-30 240 mg 3 drprs 1 1/2 tsp 3 tabs 30-35 320 mg 2 tsp 4 tabs 36-41 360 mg 2 1/4 tsp 4 1/2 tabs 42-47 400 mg 2 1/2 tsp 5 tabs 48-53 480 mg 3 tsp 6 tabs 54-59 520 mg 3 1/4 tsp 6 1/2 tabs 60-64 560 mg 3 1/2 tsp 7 tabs 65-70 600 mg 3 3/4 tsp 7 1/2 tabs 71-76 640 mg 4 tsp 8 tabs 77-82 720 mg 4 1/2 tsp 9 tabs 83-88 800 mg 5 tsp 10 tabs >89 pounds or adults 650 mg to 900 mg Acetaminophen can be repeated every four hours. Maximum dose not to exceed 4000 mg a day. These maximum recommended dosages are slightly higher than the dosages written on the product container, but these dosages are very safe and below the toxic dosage for acetaminophen. FOLLOW-UP CARE: If you have been referred to a physician for follow-up care, call the physicians office for an appointment as you were instructed or within the next two days. If you experience worsening or a significant change in your symptoms, notify the physician immediately or return to the Emergency Department at any time for re-evaluation. Forms: Elevated Blood Pressure Referrals: GENA,MARGERET, PA-C [Primary Care Provider] - Follow up as needed BARBARA DONAHUE, [ACTIVE STAFF] - Follow up tomorrow
--- NOTE | 2020-09-14 18:34 | RADIOLOGY REPORT (SQ) ---
EXAM DESCRIPTION: WRIST RIGHT 3 VIEWS IMAGES COMPLETED DATE/TIME: 09/14/2020 6:22 pm REASON FOR STUDY: fall pain and injury COMPARISON: 05/09/2014 NUMBER OF VIEWS: Three views. TECHNIQUE: AP, lateral, and oblique radiographic images acquired of the right wrist. LIMITATIONS: None. FINDINGS: MINERALIZATION: Normal. BONES: No acute fracture or dislocation. No worrisome bone lesions. Normal alignment. SOFT TISSUES: No soft tissue swelling. No foreign body. OTHER: No other significant finding. IMPRESSION: 1. No acute osseous findings. TECHNICAL DOCUMENTATION: JOB ID: [id number] 2010 [employer]- All Rights Reserved Reading location - IP/workstation name: [email or web address]
--- NOTE | 2020-09-14 18:38 | RADIOLOGY REPORT (SQ) ---
EXAM DESCRIPTION: HAND RIGHT 3 VIEWS IMAGES COMPLETED DATE/TIME: 09/14/2020 6:22 pm REASON FOR STUDY: fall pain and injury COMPARISON: None. EXAM PARAMETERS: NUMBER OF VIEWS: Three views. TECHNIQUE: AP, lateral and oblique radiographic images acquired of the right hand. LIMITATIONS: Examination is somewhat limited due to patient positioning. FINDINGS: MINERALIZATION: Normal. BONES: No acute fracture or dislocation. No worrisome bone lesions. JOINTS: No effusions. SOFT TISSUES: No soft tissue swelling. No foreign body. OTHER: No other significant finding. IMPRESSION: 1. No acute osseous findings. TECHNICAL DOCUMENTATION: JOB ID: [id number] 2010 [employer]- All Rights Reserved Reading location - IP/workstation name: [email or web address]
--- NOTE | 2020-09-14 18:40 | RADIOLOGY REPORT (SQ) ---
EXAM DESCRIPTION: ANKLE LEFT COMPLETE IMAGES COMPLETED DATE/TIME: 09/14/2020 6:22 pm REASON FOR STUDY: fall pain and injury COMPARISON: None. NUMBER OF VIEWS: Three views. TECHNIQUE: AP, lateral, and oblique radiographic images acquired of the left ankle. LIMITATIONS: None. FINDINGS: MINERALIZATION: Normal. BONES: No acute fracture or dislocation. Calcaneal spurs. A small well corticated ossific density i n the soft tissues superior to the proximal talus may be related prior remote injury. JOINTS: No effusions. SOFT TISSUES: Soft tissue swelling. OTHER: No other significant finding. IMPRESSION: 1. Soft tissue swelling. 2. No acute osseous findings. TECHNICAL DOCUMENTATION: JOB ID: [id number] 2010 [employer]- All Rights Reserved Reading location - IP/workstation name: [email or web address]
--- NOTE | 2020-09-14 18:42 | RADIOLOGY REPORT (SQ) ---
EXAM DESCRIPTION: KNEE LEFT 4 VIEW IMAGES COMPLETED DATE/TIME: 09/14/2020 6:22 pm REASON FOR STUDY: fall pain and injury COMPARISON: None. NUMBER OF VIEWS: Four views. TECHNIQUE: AP, lateral, and both oblique radiographic images acquired of the left knee. LIMITATIONS: None. FINDINGS: MINERALIZATION: Normal. BONES: No acute fracture or dislocation. Prominent enthesiophyte at the quadriceps tendon insertion. JOINT: Tricompartmental degenerative changes more pronounced at the patellofemoral and medial compar tments of the knee with prominent marginal osteophytes and patellar pole osteophytes. No effusion. SOFT TISSUES: No soft tissue swelling. No radio-opaque foreign body. OTHER: No other significant finding. IMPRESSION: 1. Tricompartmental osteoarthrosis more pronounced at the patellofemoral and medial com partments of the knee. 2. No acute osseous findings. TECHNICAL DOCUMENTATION: JOB ID: [id number] 2010 [employer]- All Rights Reserved Reading location - IP/workstation name: [email or web address]
--- NOTE | 2020-09-14 18:47 | RADIOLOGY REPORT (SQ) ---
EXAM DESCRIPTION: KNEE RIGHT 4 VIEWS IMAGES COMPLETED DATE/TIME: 09/14/2020 6:22 pm REASON FOR STUDY: fall pain and injury COMPARISON: None. NUMBER OF VIEWS: Four views. TECHNIQUE: AP, lateral, and both oblique radiographic images acquired of the right knee. LIMITATIONS: Examination is limited due to patient positioning. FINDINGS: MINERALIZATION: Normal. BONES: Nondisplaced fracture at the head of the fibula. Enthesiophyte at the quadriceps tendon and p atella tendon insertions. JOINT: Mild degenerative changes. No effusion. SOFT TISSUES: No soft tissue swelling. No radio-opaque foreign body. OTHER: No other significant finding. IMPRESSION: 1. Examination is limited due to patient positioning. Nondisplaced fracture head of th e fibula. 2. Degenerative mild changes at the knee. TECHNICAL DOCUMENTATION: JOB ID: [id number] 2010 [employer]- All Rights Reserved Reading location - IP/workstation name: [email or web address]
[2020-09-14 20:27] VITALS: BP 152/88
[2020-09-14] MEDS ORDERED: KETOROLAC TROMETHAMINE 60 MG/2 ML SDV ONE (20:28)
== END 2020-09-14 20:23 | disposition home or self-care (01) ==
LOC: ER 17:15
DX: S82.831A Other fracture of upper and lower end of right fibula, initial encounter for closed fracture (principal); S93.402A Sprain of unspecified ligament of left ankle, initial encounter; S80.212A Abrasion, left knee, initial encounter; S80.211A Abrasion, right knee, initial encounter; S60.511A Abrasion of right hand, initial encounter; S60.412A Abrasion of right middle finger, initial encounter; S60.311A Abrasion of right thumb, initial encounter; W19.XXXA Unspecified fall, initial encounter; Y93.89 Activity, other specified; Y92.009 Unspecified place in unspecified non-institutional (private) residence as the place of occurrence of the external cause; M17.12 Unilateral primary osteoarthritis, left knee; I10 Essential (primary) hypertension; J45.909 Unspecified asthma, uncomplicated; E11.9 Type 2 diabetes mellitus without complications; Z87.81 Personal history of (healed) traumatic fracture
CPT/HCPCS: 99285; 96372; 73610; 73130; 73564 ×2; 73110; J1885

== ENCOUNTER 2020-11-30 11:11 | Emergency (ER) | payer OTHER, MEDICAID ==
--- NOTE | 2020-11-30 11:31 | ER Document Report ---
ED Medical Screen (RME) - General Chief Complaint: Chest Pain Stated Complaint: HEADACHE Time Seen by Provider: 11/30/20 11:18 Primary Care Provider: FRANCISCO AVERY PA-C [Primary Care Provider] - Follow up as needed TRAVEL OUTSIDE OF THE [place] IN LAST 30 DAYS: No - HPI Notes: 11/30/20 11:28 55-year-old female with a history of type 1 diabetes, hypertension, hyperlipidemia, GERD, asthma presents to the emergency room today with bilateral headache, right facial numbness, blurred vision, right arm numbness and tingling that started at 9 AM and has been constant, she reports "I feel like I was hit by a baseball bat". Reports pain is 4 out of 5, sharp. Patient also reports she is having substernal chest pain that is intermittent roughly for a minute that also radiates to her right shoulder, she also reports shortness of breath on exertion. Reports father has a history of an [place] at 53 and mother with a CVA at 56. Patient denies smoking. Patient did not check her blood sugar today and did not take any insulin I have greeted and performed a rapid initial assessment of this patient. A comprehensive ED assessment and evaluation of the patient, analysis of test resu lts and completion of the medical decision making process will be conducted by additional ED providers. PHYSICAL EXAMINATION: GENERAL: Well-appearing, well-nourished and in no acute distress. HEAD: Atraumatic, normocephalic. EYES: Pupils equal round extraocular movements intact, conjunctiva are normal. NECK: Normal range of motion CV: s1, s2 regular LUNGS: No respiratory distress Musculoskeletal: Normal range of motion NEUROLOGICAL: Normal speech, normal gait. PERRLA, EOMI. Full motor and sensory function throughout. Animal Sitter + 2 equal bilaterally in BUE. Tongue midline. No pronator drift. No ataxia. Neck with APROM. Raises eyebrows. Strength is 5 out of 5 in bilateral upper and lower extremities equally.Speaks in full sentences. SKIN: Warm, Dry, normal turgor, no rashes or lesions noted. Charge nurse, Alize, made aware of stroke alert at 11:25 The patient was evaluated during a global COVID-19 pandemic and that diagnosis was suspected/considered upon their initial presentation. Their evaluation, treatment and testing was consistent with current guidelines for patients who present with complaints or symptoms and may be related to COVID-19. 11/30/20 11:30 - Related Data Allergies/Adverse Reactions: levofloxacin [From Levaquin] Adverse Reaction (Intermediate, Verified 09/14/20 20:18) nausea and vomiting simvastatin [From Zocor] Adverse Reaction (Intermediate, Verified 09/14/20 20:18) rash Home Medications: insulin, protonix/ lisinopril, percocet Past Medical History - Social History Chew tobacco use (# tins/day): No Frequency of alcohol use: None Drug Abuse: None - Past Medical History Cardiac Medical History: Reports: Hx Hypercholesterolemia, Hx Hypertension, Hx Heart Murmur Pulmonary Medical History: Reports: Hx Asthma - MILD Neurological Medical History: Reports: Hx Migraine Endocrine Medical History: Reports: Hx Diabetes Mellitus Type 2 Renal/ Medical History: Reports: Hx Kidney Stones GI Medical History: Reports: Hx Gastroesophageal Reflux Disease, Hx Ulcer - gastric, Hx Colonoscopy, Hx Endoscopy Musculoskeltal Medical History: Reports Hx Arthritis - JOSIE KNEES/BACK, Reports Hx Musculoskeletal Deformity, Reports Hx Musculoskeletal Trauma Psychiatric Medical History: Reports: Hx Depression Traumatic Medical History: Reports: Hx Fractures - right wrist, both ankles Past Surgical History: Reports: Hx Cholecystectomy - lap marilyn, Hx Hysterectomy, Hx Orthopedic Surgery - L knee x2, L SHOULDER. Denies: Hx Pacemaker - Immunizations Immunizations up to date: Yes Hx Diphtheria, Pertussis, Tetanus Vaccination: Yes - 2018 Physical Exam - Vital signs Vitals: Temp Pulse Resp BP Pulse Ox 98.2 F 104 H 20 154/88 H 96 11/30/20 11:15 11/30/20 11:15 11/30/20 11:15 11/30/20 11:15 11/30/20 11:15 Course - Vital Signs Vital signs: Temp Pulse Resp BP Pulse Ox 98.2 F 104 H 20 154/88 H 96 11/30/20 11:15 11/30/20 11:15 11/30/20 11:15 11/30/20 11:15 11/30/20 11:15 Doctor's Discharge - Discharge Referrals: FRANCISCO AVERY PA-C [Primary Care Provider] - Follow up as needed
--- NOTE | 2020-11-30 11:55 | RADIOLOGY REPORT (SQ) ---
EXAM DESCRIPTION: CT HEAD WITHOUT IMAGES COMPLETED DATE/TIME: 11/30/2020 11:34 am REASON FOR STUDY: woke up 02/21 ORTEGA,R facial and R arm numbness @9am COMPARISON: 05/18/2018 TECHNIQUE: Axial images acquired through the brain without intravenous contrast. Images reviewed wi th bone, brain and subdural windows. Additional sagittal and coronal reconstructions were generated. Images stored on PACS. All CT scanners at this facility use dose modulation, iterative reconstruction, and/or weight based d osing when appropriate to reduce radiation dose to as low as reasonably achievable (ALARA). [facility]: Dose Right [facility]: CareDose [facility]: Dose Right [facility]: Teradose 4D [facility]: Cortona3D RADIATION DOSE: CT Rad equipment meets quality standard of care and radiation dose reduction techniq ues were employed. CTDIvol: 53.2 mGy. DLP: 1044 mGy-cm. mGy. LIMITATIONS: None. FINDINGS: VENTRICLES: Normal size and contour. CEREBRUM: No masses. No hemorrhage. No midline shift. No evidence for acute infarction. Normal gra y/white matter differentiation. No areas of low density in the white matter. CEREBELLUM: No masses. No hemorrhage. No alteration of density. No evidence for acute infarction. EXTRAAXIAL SPACES: No fluid collections. No masses. ORBITS AND GLOBE: No intra- or extraconal masses. Normal contour of globe without masses. CALVARIUM: No fracture. PARANASAL SINUSES: No fluid or mucosal thickening. SOFT TISSUES: No mass or hematoma. OTHER: No other significant finding. IMPRESSION: NORMAL BRAIN CT WITHOUT CONTRAST. EVIDENCE OF ACUTE STROKE: NO. COMMENT: Quality ID # [id number]: Final reports with documentation of one or more dose reduction techniques (e.g., Automated exposure control, adjustment of the mA and/or kV according to patient size, use of iterative reconstruction technique) TECHNICAL DOCUMENTATION: JOB ID: [id number] 2010 [employer]- All Rights Reserved Reading location - IP/workstation name: [email or web address]
--- NOTE | 2020-11-30 12:04 | RADIOLOGY REPORT (SQ) ---
EXAM DESCRIPTION: CHEST SINGLE VIEW IMAGES COMPLETED DATE/TIME: 11/30/2020 11:37 am REASON FOR STUDY: woke up 02/21 ORTEGA,R facial and R arm numbness @9am COMPARISON: 07/17/2019 EXAM PARAMETERS: NUMBER OF VIEWS: One view. TECHNIQUE: Single frontal radiographic view of the chest acquired. RADIATION DOSE: NA LIMITATIONS: None. FINDINGS: LUNGS AND PLEURA: No opacities, masses or pneumothorax. No pleural effusion. MEDIASTINUM AND HILAR STRUCTURES: No masses. Contour normal. HEART AND VASCULAR STRUCTURES: Heart normal in size. Normal vasculature. BONES: No acute findings. HARDWARE: None in the chest. OTHER: No other significant finding. IMPRESSION: No evidence of acute cardiopulmonary abnormality. TECHNICAL DOCUMENTATION: JOB ID: [id number] 2010 [employer]- All Rights Reserved Reading location - IP/workstation name: [email or web address]
[2020-11-30 12:16] LABS: INTERNATIONAL RATION (INR) 0.97; PROTHROMBIN TIME 13.1 SEC (11.4-15.4)
[2020-11-30 12:18] LABS: ABSOLUTE EOSINOPHILS # (AUTO) 0.2 10^3/uL (0.0-0.6); ABSOLUTE LYMPHOCYTES (AUTO) 2.3 10^3/uL (0.5-4.7); ABSOLUTE MONOCYTES (AUTO) 0.3 10^3/uL (0.1-1.4); ABSOLUTE NEUT (AUTO) 4.2 10^3/uL (1.7-8.2); BASOPHILS % (AUTO) 0.7 % (0-2); EOSINOPHILS % (AUTO) 2.3 % (0-6); HEMATOCRIT 38.6 % (36.0-47.0); LYMPHOCYTES % (AUTO) 32.7 % (13-45); MEAN CORPUSCULAR HEMOGLOBIN 27.2 pg (27.0-33.4); MEAN CORPUSCULAR HGB CONC 33.8 g/dL (32.0-36.0); MEAN CORPUSCULAR VOLUME 81 fl (80-97); MONOCYTES % (AUTO) 4.3 % (3-13); PLATELET COUNT 147 10^3/uL (150-450); RED CELL DISTRIBUTION WIDTH 15.4 % (11.5-14.0); TOTAL CELLS COUNTED % (AUTO) 100 %; WHITE BLOOD COUNT 6.9 10^3/uL (4.0-10.5)
[2020-11-30 12:41] LABS: ALBUMIN 4.1 g/dL (3.5-5.0); ALKALINE PHOSPHATASE 122 U/L (38-126); ANION GAP 8 (5-19); ASPARTATE AMINO TRANSFERASE 49 U/L (14-36); BILIRUBIN,DIRECT 0.2 mg/dL (0.0-0.4); BILIRUBIN,TOTAL 0.6 mg/dL (0.2-1.3); BLOOD UREA NITROGEN 19 mg/dL (7-20); CALCIUM 9.3 mg/dL (8.4-10.2); CARBON DIOXIDE 29 mmol/L (22-30); CHLORIDE 96 mmol/L (98-107); GLUCOSE 223 mg/dL (75-110); POTASSIUM 3.8 mmol/L (3.6-5.0); TOTAL PROTEIN 7.5 g/dL (6.3-8.2)
[2020-11-30 12:50] LABS: NT PRO BNP 32 pg/mL (<125)
[2020-11-30 12:58] LABS: TROPONIN I < 0.012 ng/mL
--- NOTE | 2020-11-30 13:00 | ER Document Report ---
ED NIH Stroke Scale - NIH Stroke Scale When completed:: Before Alteplase *: 1. NIH scale should be completed with appropriate accompanying assessment tools. *: 2. The NIH should reflect what the patient is capable of doing and should not be coached by the clinician. 1a. Level of Consciousness: 0=Alert;keenly responsive -: 1=Drowsy -: 2=Obtunded -: 3=Coma/unresponsive or reflex to noxious stimuli. 1a. Responses: 0 1b. Orientation Questions: a. What month is it? -: b. How old are you? -: 0=Answers both questions correctly. -: 1=Answers one question correctly or patient is intubated or has orotracheal trauma. -: 2=Answers neither question correctly. 1b. Responses: 0 1c. Response to commands: a. Open and close eyes? -: b. Napper Tender and release hand? -: Credit is given despite weakness. Demonstration of task is permitted. Substitute command if hands cannot be used. -: 0=Performs both tasks correctly -: 1=Performs one task correctly -: 2=Performs neither task correctly 1c. Responses: 0 2. Gaze: Establish eye contact and instruct patient to "Follow my finger" -: 0=Normal -: 1=Partial gaze palsy. Gaze is abnormal in one or both eyes, but where forced deviation or total gaze paresis is not present. -: 2=Forced deviation or total gaze paresis. 2. Responses: 0 3. Visual Wong: Sees fingers in all four quadrants. -: 0=No visual loss. -: 1=Partial hemianopsia. -: 2=Complete hemianopsia. -: 3=Bilateral hemianopsia (including Cortical blindness) 3. Responses: 0 4. Facial Movement: Instruct patient to: -: a. Show me your teeth -: b. Raise your eyebrows -: c. Close your eyes -: d. Smile -: 0=Normal symmetrical movement -: 1=Minor paralysis (flattened nasolabial fold, asymmetry on smiling). -: 2=Partial paralysis (total or near total paralysis of lower face). -: 3=Complete paralysis of upper and lower face 4. Responses: 0 5. Motor functions (left arm): Alternate sides and extend each arm with palms down (90 degrees if sitting or 45 degrees for supine). -: 0=No drift;limb holds for full 10 seconds. -: 1=Drift; limb holds but drifts down before full 10 seconds, but does not hit bed. -: 2=Some effort against gravity; limb cannot get to or maintain position. -: 3=No effort against gravity; limb falls. -: 4=No movement. -: UN=Amputation, joint fusion, explain in comments. 5. Responses (left arm): 0 5. Motor Functions (right arm): Alternate sides and extend each arm with palms down (90 degrees if sitting or 45 degrees for supine). -: 0=No drift;limb holds for full 10 seconds. -: 1=Drift; limb holds but drifts down before full 10 seconds, but does not hit bed. -: 2=Some effort against gravity; limb cannot get to or maintain position. -: 3=No effort against gravity; limb falls. -: 4=No movement. -: UN=Amputation, joint fusion, explain in comments. 5. Responses (right arm): 0 6. Motor Functions (left leg): With patient lying supine, alternate sides and extend each leg (30 degrees always while supine). -: 0=No drift, leg holds position for full 5 seconds -: 1=Drift; leg falls before full 5 seconds but does not hit bed. -: 2=Some effort against gravity, leg falls to bed but some effort against gravity. -: 3=No effort against gravity, leg falls to bed immediately. -: 4=No movement. -: UN=Amputation, joint fusion; explain in comments. 6. Responses (left leg): 0 6. Motor Functions (right leg): With patient lying supine, alternate sides and extend each leg (30 degrees always while supine). -: 0=No drift, leg holds position for full 5 seconds -: 1=Drift; leg falls before full 5 seconds but does not hit bed. -: 2=Some effort against gravity, leg falls to bed but some effort against gravity. -: 3=No effort against gravity, leg falls to bed immediately. -: 4=No movement. -: UN=Amputation, joint fusion; explain in comments. 6. Responses (right leg): 0 7. Limb Ataxia: With eyes open instruct patient to: -: a. "Touch your finger to your nose". -: b. "Touch your heel to your corrales" -: 0=Absent -: 1=Present in one limb. -: 2=Present in two limbs. -: UN=Amputation or joint fusion; explain in comments. 7. Responses: 0 8. Sensory: Test sensation using pinprick or noxious stimuli. Test as many body parts as possible. -: 0=Normal;no sensory loss -: 1=Mile to moderate sensory loss (patient feels pin prick but is less sharp on affected side). -: 2=Severe or total sensory loss. 8. Responses: 1 9. Best Language: Instruct patient to: -: a. "Describe what you see in this picture." -: b. "Name the items in this picture." -: c. "Read these sentences." -: 0=No aphasia, normal -: 1=Mild to moderate aphasia. -: 2=Severe aphasia -: 3=Mute, global aphasia, no usable speech or auditory comprehension. 9. Responses: 0 10. Articulation, Dysarthia: Instruct patient to: -: "Read these words" or "Repeat these words" -: 0=Normal -: 1=Mild to moderate; patient may slur some words but can be understood without difficulty. -: 2=Severe; patients speech so slurred as to be unintelligible in the absence of dysphasia. -: UN=Intubated or other physical barrier, explain in comments. 10. Responses: 0 11. Extinction or inattention: 0=No abnormality -: 1= Visual, tactile, auditory, spatial, or personal inattention or extinction to bilateral simulation in one or the sensory modalities. -: 2=Profound gisella-inattention or gisella-inattention to more than one modality; does not recognize own hand. 11. Responses: 0 Total Score: 1
--- NOTE | 2020-11-30 13:07 | ER Document Report ---
ED Alteplase Inc/Exc Criteria - Inclusion Criteria: 1: Patient presented to ED within 4.5 hours of acute ischemic stroke symptom onset? -: Yes 2: Did baseline CT exclude intracranial hemorrhage and/or other risk factors? -: Yes 3: Is the age of the patient 18 years of age or greater? -: Yes : If any of the above questions are answered "NO" then stop, patient is not a candidate for Alteplase, : If all of the above questions are answered "YES" then continue with Exclusion Criteria. - Exclusion Criteria: 1: Is there evidence of intracranial hemorrhage on baseline CT? -: No 2: Is there suspicion of subarachnoid hemorrhage (even if CT negative)? -: No 3: Is there a history of serious head trauma, recent previous stroke or SD within 3 months? -: No 4: Does the patient have a clinical presentation consistent with SD or post-SD pericarditis? -: No 5: Is there history of intracranial hemorrhage? -: No 6: On repeated measurement is Systolic BP greater than 185mmHg or Diastolic BP greater that 110 mmHg and is aggressive treatment needed to reduce blood pressure to these limits (e.g. constant infusion of an anti-hypertensive)? -: No 7: Did the patient awake with stroke symptoms? -: No 8: Has the patient had a lumbar puncture or an arterial puncture at a non- compressile site within 7 days? -: No 9: With in the last 14 days did the patient have surgery or major trauma? -: No 10: Is the patient or less than 2 weeks? -: No 11: Was there any active bleeding or acute trauma? -: No 12: Does the patient have intracranial neoplasm, arteriovenous malformation or aneurysm? -: No 13: Does the patient have abnormal glucose (less than 50 or greater than 400mg/dl)? Record glucose in Comment. -: No 14: Patient has rapidly improving symptoms at the time Alteplase is to be Administered. -: No 15: Does the patient have any risks for bleeding, including but not limited to: a.: Current use of Coumadin with PT greater than 15 seconds or INR greater than 1.7. b.: Current use of Pradaxa (Dabigatran). c.: Heparin administereed within the past 48 hours and PTT elevated. d.: Platelet count less than 100,000/mm. e.: Major surgery or serious trauma within 14 days. f.: Gastrointestinal or gynecological urinary bleeding within 14 days. g.: Myocardial Infarction (SD) within 3 months. -: No : If the answer to any of the above questions is "YES" then stop, the patient is not a candidate for Alteplase. : If the answer to all of the above questions is "NO" then the patient may be eligible for the Administration of Alteplase. : If the patient is noted to have seizure activity at onset of Stroke symptoms; Consult Neurologist for further evaluation. - The patient is: -: Included and is eligible to receive Alteplase. *Initiate bed placement at higher level of care* --: Yes Reviewed risks & benefits of thrombolytic therapy: I have reviewed the risks and benefits of thrombolytic therapy with the patient and/or his/her family. Yes -: Excluded and not eligible to receive Alteplase for the above exclusions. --: No -: Excluded and not eligible to receive Alteplase for other reasons (specify in comments): --: Yes - pt declines - Diagnosis of TIA: -: Patient presented with transient symptoms that are now resolved and no other neurologic findings are currently present. List symptoms in comments. -: Patient is NOT a candidate for tPA. -: ____(put name in comment) has been consulted for admission and continued evaluation of risk factor assessment.
[2020-11-30] MEDS ORDERED: PROMETHAZINE HCL INJ 25 MG/1 ML VIAL IV ONE (13:16)
[2020-11-30] MEDS ORDERED: MORPHINE SULFATE 10 MG/ML INJ IV ONE (13:16)
--- NOTE | 2020-11-30 14:54 | RADIOLOGY REPORT (SQ) ---
EXAM DESCRIPTION: CTA HEAD IMAGES COMPLETED DATE/TIME: 11/30/2020 2:05 pm REASON FOR STUDY: headache/facial numbness COMPARISON: None. TECHNIQUE: Post IV contrast scanning, thin section axial imaging through the brain to evaluate the a rterial structures. Source and MIP images are saved and reviewed on PACS. Advanced 3D imaging as volume-rendering, MIPs, SSD performed? No All CT scanners at this facility use dose modulation, iterative reconstruction, and/or weight based d osing when appropriate to reduce radiation dose to as low as reasonably achievable (ALARA). [facility]: Dose Right [facility]: CareDose [facility]: Dose Right [facility]: Teradose 4D [facility]: [employer] CONTRAST TYPE AND DOSE: contrast/concentration: Isovue 350.00 mmol/ml; Total Contrast Delivered: 70. 0 ml; Total Saline Delivered: 56.1 ml RENAL FUNCTION: BUN 19; creatinine 0.81 LIMITATIONS: None. FINDINGS: [place]: The anterior, middle, posterior cerebral arteries are all patent. No ev idence of aneurysm or focal stenosis. POSTERIOR CIRCULATION: The distal vertebral arteries are patent as is the basilar artery. No aneurysm . BRAIN: No gross enhancing lesions as visualized. The superior cerebral hemispheres are not included in the field of view. BONES: Intact as visualized. SINUSES: No fluid or mucosal thickening. OTHER: No other significant finding. IMPRESSION: NO CTA EVIDENCE OF STENOSIS OR ANEURYSM OF THE [place]. TECHNICAL DOCUMENTATION: JOB ID: [id number] Quality ID # [id number]: Final reports with documentation of one or more dose reduction techniques (e.g., Au tomated exposure control, adjustment of the mA and/or kV according to patient size, use of iterative reconstruction technique) 2010 [employer]- All Rights Reserved Reading location - IP/workstation name: [email or web address]
--- NOTE | 2020-11-30 14:57 | RADIOLOGY REPORT (SQ) ---
EXAM DESCRIPTION: CTA NECK IMAGES COMPLETED DATE/TIME: 11/30/2020 2:06 pm REASON FOR STUDY: headache/facial numbness COMPARISON: None. TECHNIQUE: Axial dynamic scanning technique with dynamic contrast enhancement through the extra-hog scraper nial carotid and vertebral arteries. Multiplanar reconstruction. 3-D MIPS and Volume-rendered imag es acquired at the workstation and saved to PACS. Images are reviewed in soft tissue, bone, lung w indows. All CT scanners at this facility use dose modulation, iterative reconstruction, and/or weight based d osing when appropriate to reduce radiation dose to as low as reasonably achievable (ALARA). [facility]: Dose Right [facility]: CareDose [facility]: Dose Right [facility]: Teradose 4D [facility]: [employer] CONTRAST TYPE AND DOSE: 70 mL Omnipaque 350- low osmolar. RENAL FUNCTION: BUN 19; creatinine 0.8 LIMITATIONS: None. FINDINGS: AORTIC ARCH: Normal three-vessel origin. Bilateral subclavian arteries are patent. No d issection. RIGHT CAROTIDS: Patent common, internal and external carotid arteries without suggestion of significa nt stenosis or irregular plaque. No dissection. RIGHT VERTEBRAL: Patent. No dissection. LEFT CAROTIDS: Patent common, internal and external carotid arteries without suggestion of significan t stenosis or irregular plaque. No dissection. LEFT VERTEBRAL: Patent. No dissection. OTHER: No other significant finding. OTHER: 3-D reconstructions confirm findings. IMPRESSION: NORMAL CTA OF THE EXTRA-CRANIAL CAROTID AND VERTEBRAL ARTERIES. COMMENT: Quality ID #[id number]: Measurements of distal internal carotid diameter were used as the denomina tor for stenosis measurement. TECHNICAL DOCUMENTATION: JOB ID: [id number] Quality ID # [id number]: Final reports with documentation of one or more dose reduction techniques (e.g., Au tomated exposure control, adjustment of the mA and/or kV according to patient size, use of iterative reconstruction technique) 2010 [employer]- All Rights Reserved Reading location - IP/workstation name: [email or web address]
--- NOTE | 2020-11-30 15:49 | ER Document Report ---
ED General - General Chief Complaint: Chest Pain Stated Complaint: HEADACHE Time Seen by Provider: 11/30/20 11:18 Primary Care Provider: FRANCISCO AVERY PA-C [Primary Care Provider] - Follow up as needed Mode of Arrival: Ambulatory Information source: Patient TRAVEL OUTSIDE OF THE [place] IN LAST 30 DAYS: No - HPI Notes: Patient comes in and complains of headache. She states it started approximately 20 minutes after waking up this morning. It is bilateral. It is approximately 4 on a scale of 1-5. It is sharp and constant. Nothing makes it better or worse. It radiates from one side of the head to the other is mainly in the parietal areas. She states she does have a history of migraines with this one feels different because the right side of her face is numb and her vision has been blurry. She states she can see but her vision is blurry. She denies any nausea vomiting or diarrhea. No recent fever sweats or chills. She denies any trouble moving arms or legs. No trouble with ambulation speaking or swallowing. Patient also states she was having some intermittent substernal chest pain today that was brief and mild. She denies any previous history of cardiac disease. - Related Data Allergies/Adverse Reactions: levofloxacin [From Levaquin] Adverse Reaction (Intermediate, Verified 09/14/20 20:18) nausea and vomiting simvastatin [From Zocor] Adverse Reaction (Intermediate, Verified 09/14/20 20:18) rash Home Medications: insulin, protonix/ lisinopril, percocet Past Medical History - General Information source: Patient - Social History Smoking Status: Former Smoker Chew tobacco use (# tins/day): No Frequency of alcohol use: None Drug Abuse: None Family History: Arthritis, Malignancy, CAD, CVA, DM, Hyperlipidemia, Hypertens ion, Reviewed & Not Pertinent - Past Medical History Cardiac Medical History: Reports: Hx Hypercholesterolemia, Hx Hypertension, Hx Heart Murmur Pulmonary Medical History: Reports: Hx Asthma - MILD Neurological Medical History: Reports: Hx Migraine Endocrine Medical History: Reports: Hx Diabetes Mellitus Type 2 Renal/ Medical History: Reports: Hx Kidney Stones GI Medical History: Reports: Hx Gastroesophageal Reflux Disease, Hx Ulcer - gastric, Hx Colonoscopy, Hx Endoscopy Musculoskeletal Medical History: Reports Hx Arthritis - JOSIE KNEES/BACK, Reports Hx Musculoskeletal Deformity, Reports Hx Musculoskeletal Trauma Psychiatric Medical History: Reports: Hx Depression Traumatic Medical History: Reports: Hx Fractures - right wrist, both ankles Past Surgical History: Reports: Hx Cholecystectomy - lap marilyn, Hx Hysterectomy, Hx Orthopedic Surgery - L knee x2, L SHOULDER. Denies: Hx Pacemaker - Immunizations Immunizations up to date: Yes Hx Diphtheria, Pertussis, Tetanus Vaccination: Yes - 2017 Hx Pneumococcal Vaccination: 08/19/15 Review of Systems - Review of Systems Constitutional: denies: Chills, Fever Cardiovascular: Chest pain. denies: Palpitations Respiratory: Short of breath. denies: Cough -: Yes All other systems reviewed and negative Physical Exam - Vital signs Vitals: Temp Pulse Resp BP Pulse Ox 98.2 F 104 H 20 154/88 H 96 11/30/20 11:15 11/30/20 11:15 11/30/20 11:15 11/30/20 11:15 11/30/20 11:15 Interpretation: Hypertensive, Tachycardic - General General appearance: Appears well, Alert - HEENT Head: Normocephalic, Atraumatic Eyes: Normal Pupils: PERRL - Respiratory Respiratory status: No respiratory distress Chest status: Nontender Breath sounds: Normal Chest palpation: Normal - Cardiovascular Rhythm: Regular Heart sounds: Normal auscultation Murmur: No - Abdominal Inspection: Normal Distension: No distension Bowel sounds: Normal Tenderness: Nontender Organomegaly: No organomegaly - Back Back: Normal, Nontender - Extremities General upper extremity: Normal inspection, Nontender, Normal color, Normal ROM, Normal temperature General lower extremity: Normal inspection, Nontender, Normal color, Normal ROM, Normal temperature, Normal weight bearing. 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 No: Pronator drift Sensory: Normal - Psychological Associated symptoms: Normal affect, Normal mood - Skin Skin Temperature: Warm Skin Moisture: Dry Skin Color: Normal Course - Re-evaluation Re-evalutation: 11/30/20 15:46 Patient presents with headache as the main complaint. I do not see any evidence of any neurological deficits on neuro exam except for some subjective sensory deficits of the right side of the face. Her stroke scale is a one. I discussed TPA with the patient but she declined. CT of the head and CTA of the head and neck are all unremarkable. At this time I do not feel that the patient is having any significant intracranial pathology. I think this may be an atypical migraine for the patient. She states she does have Percocet at home does not need pain medicines. She states that discharge that she is feeling better. Patient also is having some intermittent chest pain with there is no signs of acute ischemia. I have arranged, through a phone call, and have the patient follow-up with Dr. Denny as an outpatient. - Vital Signs Vital signs: Temp Pulse Resp BP Pulse Ox 98.2 F 90 15 137/90 H 98 11/30/20 11:15 11/30/20 15:29 11/30/20 15:29 11/30/20 15:29 11/30/20 15:29 - Laboratory Results Result Diagrams: 11/30/20 11:48 11/30/20 11:48 Laboratory Results Interpreted: 11/30/20 11/30/20 11:48 11:48 RDW 15.4 H Plt Count 147 L Sodium 133.2 L Chloride 96 L Glucose 223 H AST 49 H ALT 40 H Critical Laboratory Results Reviewed: No Critical Results - Radiology Results Critical Radiology Results Reviewed: No Critical Results - EKG Interpretation by Me EKG shows normal: Sinus rhythm Rate: Normal - 86 Rhythm: NSR Damar/QRS: No: Right axis deviation, Left axis deviation Discharge - Discharge Clinical Impression: Chest pain Qualifiers: Chest pain type: unspecified Qualified Code(s): R07.9 - Chest pain, unspecified Headache Qualifiers: Headache type: unspecified Headache chronicity pattern: acute headache Intractability: intractable Qualified Code(s): R51.9 - Headache, unspecified Condition: Stable Disposition: HOME, SELF-CARE Instructions: Chest Pain of Unclear Cause ([facility]), Headache ([facility]) Additional Instructions: You will receive a call from Dr. Denny's office later today or tomorrow to arrange for you to be seen. He is a top steep tender. Forms: Elevated Blood Pressure, Return to Work Referrals: TAHIR DENNY MD [ACTIVE STAFF] - Follow up in 3-5 days
[2020-11-30 15:57] LABS: APPEARANCE,URINE CLEAR; BILIRUBIN,URINE NEGATIVE (NEGATIVE); COLOR,URINE STRAW; GLUCOSE, URINE >=500 mg/dL (NEGATIVE); KETONES,URINE 20 mg/dL (NEGATIVE); LEUKOCYTE ESTERASE,URINE NEGATIVE (NEGATIVE); NITRITE,URINE NEGATIVE (NEGATIVE); PROTEIN,URINE NEGATIVE (NEGATIVE); URINE SPECIFIC GRAVITY 1.036; UROBILINOGEN,URINE NEGATIVE mg/dL (<2.0)
[2020-11-30 16:11] VITALS: BP 128/67
--- NOTE | 2020-12-01 10:25 | EKG REPORT ---
SEVERITY:- NORMAL ECG - SINUS RHYTHM : Confirmed by: Summer Finney MD 01-Dec-2020 10:25:01
== END 2020-11-30 16:11 | disposition home or self-care (01) ==
LOC: ER 11:11
DX: R07.9 Chest pain, unspecified (principal); R51.9 Headache, unspecified; E10.9 Type 1 diabetes mellitus without complications; I10 Essential (primary) hypertension; E78.5 Hyperlipidemia, unspecified; K21.9 Gastro-esophageal reflux disease without esophagitis; E78.00 Pure hypercholesterolemia, unspecified; Z87.442 Personal history of urinary calculi
CPT/HCPCS: 93005; 99285; 96374; 96375; 36415; 85025; 85610; 80053; 81001; 84484; 83880; 71045; 70450; 70496; 70498; 93010; J2270; J2550